=== PATIENT | male | born 1950 | race Caucasian/White ===

== ENCOUNTER 2016-11-09 21:57 | Inpatient (IN) | payer MEDICARE ==
[2016-11-09 22:00] VITALS: BP 102/64; PULSE 111; RESP 18; TEMP 97.6; O2SAT 96
[2016-11-09] MEDS ORDERED: NOVOINJ3 SQ (23:48)
[2016-11-09] MEDS ORDERED: DOXY100C35 (23:48)
[2016-11-09] MEDS ORDERED: HYDR25TA5 PO (23:48)
[2016-11-09] MEDS ORDERED: CAPE1TAB2 PO (23:48)
[2016-11-09] MEDS ORDERED: PROC10TA PO (23:48)
[2016-11-09] MEDS ORDERED: ONDA1TAB17 PO (23:48)
[2016-11-09] MEDS ORDERED: SIMV40TA PO (23:48)
[2016-11-09] MEDS ORDERED: GLIP5TAB8 PO (23:48)
[2016-11-09] MEDS ORDERED: LANTINJ SQ (23:48)
[2016-11-09] MEDS ORDERED: ASPI81CH CHEW (23:48)
[2016-11-09] MEDS ORDERED: VALT500T PO (23:48)
[2016-11-09] MEDS ORDERED: ATEN50TA PO (23:48)
[2016-11-09] MEDS ORDERED: MAGN500T2 PO (23:48)
[2016-11-09] MEDS ORDERED: LISI-515 PO (23:48)
[2016-11-10] VITALS (10 sets, daily range): BP systolic 86–132; BP diastolic 52–66; PULSE 66–114; RESP 14–20; TEMP 96.3–98.6; O2SAT 96–100
--- NOTE | 2016-11-10 00:07 | PD ---
HPI Chief Complaint: Fever Time Seen by Provider: 23:28 Travel History International Travel<30 days: No Contact w/Intl Traveler<30days: No Traveled to known affect area: No History of Present Illness HPI The patient is a 55-year-old male who is currently undergoing treatment for colon cancer. He takes Capecitabine as a chemotherapeutic agent. The dosage was increased 2 weeks prior due to some enlargement of pulmonary nodules. The patient does have stage IV colon cancer with metastatic disease to lungs. He reports a fever today. He's had diarrhea for 2 weeks. He denies abdominal pain. He's had no vomiting however reports nausea. Appetite has been decreased the last 7 days. An occasional cough is noted. PFSH Past Medical History Cancer: Yes (colon) Chemotherapy: Yes Diabetes: Yes Patient Takes Glucophage: Yes (glypizide) Gastrointestinal Disorders: Yes (colon cancer) Hypertension: Yes Implanted Vascular Access Dvce: Yes (port) Tetanus Vaccination: Unknown Past Surgical History Abdominal Surgery: Yes (partial colon ressection/ hernia mesh broken) Cholecystectomy: Yes Other Surgery: Yes (r inguinal hernia/ abd hernia ) Social History Alcohol Use: Yes (2 xs weekly) Tobacco Use: No Substance Use: Yes (occ weed) Allergies-Medications (Allergen,Severity, Reaction): Coded Allergies: Penicillin (Verified Adverse Reaction, Severe, Rash, 11/09/16) Uncoded Allergies: poison marika (Adverse Reaction, Severe, Rash, 11/09/16) Reported Meds & Prescriptions Reported Meds & Active Scripts Active Reported Valtrex (Valacyclovir HCl) 500 Mg Tab 500 Mg PO BID Simvastatin 40 Mg Tab 40 Mg PO HS Prochlorperazine Maleate 10 Mg Tab 10 Mg PO Q6H PRN Ondansetron (Ondansetron HCl) 8 Mg Tab 8 Mg PO TID Magnesium Oxide 500 Mg Tab 800 Mg PO BID PRN Lisinopril 20 Mg Tab 20 Mg PO DAILY Lantus Solostar Pen Inj (Insulin Glargine) 300 Unit/3 Ml Pen 10 Units SQ Novolog Flexpen Inj (Insulin Aspart) 300 Unit/3 Ml Pen 20 Units SQ Hydrochlorothiazide 25 Mg Tab 25 Mg PO DAILY Glipizide 5 Mg Tab 5 Mg PO BIDAC Take 30 minutes before a meal Doxycycline Monohydrate (Doxycycline (Monohydrate)) 100 Mg Cap DAILY Capecitabine 500 Mg Tab 2,000 Mg PO BID Cytotoxic agent. Swallow whole with water 30 minutes after a meal. Do not cut or crush. Atenolol 50 Mg Tab 50 Mg PO DAILY Aspirin 81 Mg Chew 81 Mg CHEW DAILY Review of Systems Except as stated in HPI: all other systems reviewed are Neg Physical Exam Narrative GENERAL: 66-year-old male well-nourished well-developed pleasant SKIN: Warm and dry. HEAD: Atraumatic. Normocephalic. EYES: Pupils equal and round. No scleral icterus. No injection or drainage. ENT: No nasal bleeding or discharge. Mucous membranes pink and moist. NECK: Trachea midline. No JVD. CARDIOVASCULAR: Regular rate and rhythm. RESPIRATORY: No accessory muscle use. Clear to auscultation. Breath sounds equal bilaterally. GASTROINTESTINAL: Abdomen soft, non-tender, nondistended. Hepatic and splenic margins not palpable. MUSCULOSKELETAL: Extremities without clubbing, cyanosis, or edema. No obvious deformities. NEUROLOGICAL: Awake and alert. No obvious cranial nerve deficits. Motor grossly within normal limits. Five out of 5 muscle strength in the arms and legs. Normal speech. PSYCHIATRIC: Appropriate mood and affect; insight and judgment normal. Data Data Last Documented VS Vital Signs Date Time Temp Pulse Resp B/P Pulse Ox O2 Delivery O2 Flow Rate FiO2 11/10/16 02:30 114 20 98/66 97 Room Air 11/09/16 22:00 97.6 Vital signs reviewed Orders Complete Blood Count With Diff (11/09/16 23:29) Comprehensive Metabolic Panel (11/09/16 23:29) Lipase (11/09/16 23:29) Urinalysis - C+S If Indicated (11/09/16 23:29) Iv Access Insert/Monitor (11/09/16 23:29) Ecg Monitoring (11/09/16 23:29) Oximetry (11/09/16 23:29) Blood Culture (11/09/16 23:31) Chest, Single Ap (11/09/16 ) Influenzae A/B Antigen (11/09/16 23:52) Sodium Chlor 0.9% 1000 Ml Inj (Ns 1000 M (11/10/16 02:15) Cefepime Inj (Maxipime Inj) (11/10/16 02:15) Urinary Catheter Insert/Apply (11/10/16 02:30) Admit Order (Ed Use Only) (11/10/16 02:31) Labs Laboratory Tests Test 11/10/16 00:25 White Blood Count 13.3 TH/MM3 Red Blood Count 4.08 MIL/MM3 Hemoglobin 14.0 GM/DL Hematocrit 41.6 % Mean Corpuscular Volume 101.9 FL Mean Corpuscular Hemoglobin 34.2 PG Mean Corpuscular Hemoglobin 33.5 % Concent Red Cell Distribution Width 16.0 % Platelet Count 177 TH/MM3 Mean Platelet Volume 9.9 FL Neutrophils (%) (Auto) 82.6 % Lymphocytes (%) (Auto) 4.5 % Monocytes (%) (Auto) 12.7 % Eosinophils (%) (Auto) 0.1 % Basophils (%) (Auto) 0.1 % Neutrophils # (Auto) 11.0 TH/MM3 Lymphocytes # (Auto) 0.6 TH/MM3 Monocytes # (Auto) 1.7 TH/MM3 Eosinophils # (Auto) 0.0 TH/MM3 Basophils # (Auto) 0.0 TH/MM3 CBC Comment DIFF FINAL Differential Comment Sodium Level 127 MEQ/L Potassium Level 4.3 MEQ/L Chloride Level 97 MEQ/L Carbon Dioxide Level 13.4 MEQ/L Anion Gap 17 MEQ/L Blood Urea Nitrogen 77 MG/DL Creatinine 3.91 MG/DL Estimat Glomerular Filtration 16 ML/MIN Rate Random Glucose 302 MG/DL Calcium Level 8.2 MG/DL Total Bilirubin 0.6 MG/DL Aspartate Amino Transf 18 U/L (AST/SGOT) Alanine Aminotransferase 33 U/L (ALT/SGPT) Alkaline Phosphatase 77 U/L Total Protein 7.4 GM/DL Albumin 3.2 GM/DL Lipase 323 U/L [facility] Medical Decision Making Medical Screen Exam Complete: Yes Emergency Medical Condition: Yes Differential Diagnosis Sepsis, pneumonia, UTI, renal failure, anemia, colitis, gastroenteritis, influenza Narrative Course CBC & BMP Diagram 11/10/16 00:25 LFTs normal Lipase 323 Patient reports no voiding of urine for the past 3 days or so. He describes a severe fullness sensation in the pelvis area. A Ricardo catheter was placed and about 100 cc of urine was collected. Case d/w Dr Figueroa for [facility]: admission, IV abx cefepime, hydration, blood cultures, UA, renal indices today c/w KEMAR as most recent prior values were BUN 28 / Cr is 1.30. Cefepime 1g given. 1L NS given. Case discussed with Ben Du. Diagnosis Primary Impression: Fever Qualified Code: R50.9 - Fever, unspecified fever cause Additional Impressions: Diarrhea Qualified Code: R19.7 - Diarrhea, unspecified type KEMAR (acute kidney injury) Admitting Information Admitting Physician Requests: Moe Baeza MD Nov 10, 2016 00:07
[2016-11-10 00:37] LABS: BASOPHIL % 0.1 % (0.0-2.0); EOSINOPHIL % 0.1 % (0.0-4.0); HEMATOCRIT 41.6 % (39.0-51.0); HEMO FLAGS DIFF FINAL; LYMPH % 4.5 % (9.0-44.0); LYMPHOCYTE # 0.6 TH/MM3 (1.0-4.8); MEAN CELL VOLUME 101.9 FL (80.0-100.0); MEAN CORPUSCULAR HEMOGLOBIN 34.2 PG (27.0-34.0); MEAN CORPUSCULAR HGB CONC 33.5 % (32.0-36.0); MONO % 12.7 % (0.0-8.0); NEUT % 82.6 % (16.0-70.0); PLATELET COUNT 177 TH/MM3 (150-450); RED BLOOD COUNT 4.08 MIL/MM3 (4.50-5.90); WHITE BLOOD COUNT 13.3 TH/MM3 (4.0-11.0)
[2016-11-10 00:58] LABS: ALT (GPT) 33 U/L (12-78); ANION GAP 17 MEQ/L (5-15); AST (GOT) 18 U/L (15-37); BICARBONATE 13.4 MEQ/L (21.0-32.0); BLOOD UREA NITROGEN 77 MG/DL (7-18); CHLORIDE 97 MEQ/L (98-107); GLOMERULAR FILTRATION RATE 16 ML/MIN (>89); POTASSIUM 4.3 MEQ/L (3.5-5.1); SODIUM (NA) 127 MEQ/L (136-145)
[2016-11-10 01:00] LABS: ALKALINE PHOSPHATASE 77 U/L (45-117); TOTAL BILIRUBIN ADULT 0.6 MG/DL (0.2-1.0)
--- NOTE | 2016-11-10 01:05 | RADRPT ---
EXAM DATE/TIME: 11/09/2016 23:48 [facility] COMPARISON: No previous studies available for comparison. INDICATIONS : Fever for one day. MEDICAL HISTORY : Carcinoma, colon. Diabetes mellitus type II. Hypertension. SURGICAL HISTORY : Hernia repair. ENCOUNTER: Initial ACUITY: 1 day PAIN SCORE: 0/10 LOCATION: Bilateral chest FINDINGS: A single view of the chest demonstrates the lungs to be symmetrically aerated without evidence of mas s, infiltrate or effusion. The cardiomediastinal contours are unremarkable. Osseous structures are intact. [id number]-o-[id number] is in place via right internal jugular approach with its tip in the superior ve na cava. CONCLUSION: 1. No acute cardiopulmonary disease. Scott Chung MD on November 10, 2016 at 1:04 Board Certified Radiologist. This report was verified electronically.
[2016-11-10] MEDS ORDERED: CEFEPIME INJ 1,000 MG in SODIUM CHLORIDE 0.9% INJ 100 ML IV ONE (02:15)
[2016-11-10] MEDS ORDERED: SODIUM CHLOR 0.9% 1000 ML INJ 1,000 ML IV ONE ×2 (02:15→14:30)
[2016-11-10] MEDS ORDERED: ONDANSETRON HCL 4 MG/2 ML VIAL IVP PRN (02:45)
[2016-11-10] MEDS ORDERED: ACETAMINOPHEN 325 MG TAB PO PRN (02:45)
[2016-11-10] MEDS ORDERED: SODIUM CHLORIDE 0.9% FLUSH 10 ML FLUSH IV FLUSH PRN (02:45)
[2016-11-10] MEDS ORDERED: NALOXONE HCL 0.4 MG/ML AMP IV PRN (02:45)
[2016-11-10] MEDS: SODIUM CHLOR 0.9% 1000 ML INJ 1,000 ML IV SCH ×2 (03:44→12:25)
[2016-11-10] MEDS: metroNIDAZOLE 500 MG INJ 100 ML IV SCH ×3 (04:20→21:42)
[2016-11-10] MEDS: HEPARIN SODIUM - SQ 10,000 UNITS/ML VIAL SQ SCH ×2 (04:21→16:59)
[2016-11-10 04:38] LABS: BACTERIA, URINE RARE /hpf; BLOOD, URINE MOD (NEG); CALCIUM OXALATE CRYSTALS,URINE RARE /hpf; COMMENT (UR) CULT NOT INDICATED; CULTURE IF INDICATED CULT NOT INDICATED; GLUCOSE,URINE 300 mg/dL (NEG); HYALINE CAST, URINE 80 /lpf (RARE); KETONE, URINE NEG (NEG); MUCUS URINE FEW /lpf (OCC); NITRITE,URINE NEG (NEG); PH, URINE 5.5 (5.0-8.5); RENAL EPITHELIAL CELLS <1 /hpf; SQUAMOUS EPITHELIAL CELL URINE 4 /hpf (0-5); TRANSITIONAL EPI CELLS, URINE 1 /hpf; URINE COLOR YELLOW (YELLW/STRAW); WAXY CAST, URINE 1 /lpf
[2016-11-10 06:12] LABS: C. DIFF EPI 027 PRESUMPTIVE NEGATIVE (NEGATIVE); C. DIFF TOXIN PCR NEGATIVE (NEGATIVE)
[2016-11-10 07:03] LABS: MAGNESIUM 1.4 MG/DL (1.5-2.5)
[2016-11-10] MEDS: SODIUM CHLORIDE 0.9% FLUSH 10 ML FLUSH IV FLUSH SCH ×2 (07:59→21:00)
[2016-11-10] MEDS ORDERED: MORPHINE SULFATE 4 MG/ML INJ IV PUSH PRN (08:45)
[2016-11-10] MEDS ORDERED: ACETAMINOPHEN/HYDROcodone 325 MG/5 MG TAB PO PRN (08:45)
[2016-11-10] MEDS ORDERED: MAGNESIUM OXIDE 800 MG PO PRN (08:45)
[2016-11-10] MEDS ORDERED: PROCHLORPERAZINE MALEATE 10 MG TAB PO PRN (08:45)
[2016-11-10] MEDS ORDERED: LISINOPRIL 20 MG TAB PO SCH (09:00)
[2016-11-10] MEDS ORDERED: HYDROCHLOROTHIAZIDE 25 MG TAB PO SCH (09:00)
--- NOTE | 2016-11-10 09:21 | RADRPT ---
EXAM DATE/TIME: 11/10/2016 08:32 [facility] COMPARISON: No previous studies available for comparison. INDICATIONS : Increased Bun and Creatinine. MEDICAL HISTORY : Myocardial infarction. Hypertension. Chronic obstructive pulmonary disease. Colon cancer. Diabetic. SURGICAL HISTORY : Partial colon resection. Hernia mesh. Left and right shoulder surgery. ENCOUNTER: Initial ACUITY: 1 day PAIN SCORE: 0/10 LOCATION: Bilateral flank MEASUREMENTS: RIGHT KIDNEY: 11.3 x 5.8 x 5.7 cm LEFT KIDNEY: 11.3 x 4.8 x 4.2 cm FINDINGS: RIGHT KIDNEY: Mild increase in cortical echogenicity. No evidence of mass, stone or hydronephrosis. LEFT KIDNEY: Mild increase in cortical echogenicity. No evidence of mass stone or hydronephrosis. BLADDER: Decompressed with Ricardo catheter present. CONCLUSION: No evidence of hydronephrosis. Ben Mclcoud MD on November 10, 2016 at 9:17 Board Certified Radiologist. This report was verified electronically.
--- NOTE | 2016-11-10 09:50 | MH ---
cc: ERROL FARRELL MD DATE OF ADMISSION 11/10/2016 DATE OF 1950 CHIEF COMPLAINT Urinary retention, diarrhea, generalized weakness. TRAVEL IN THE LAST 30 DAYS None HISTORY OF PRESENT ILLNESS This is a 55-year-old white male who was diagnosed with colon cancer in 2014. The patient now has been treated at the [facility] and seen every three weeks. The last visit was on 10/26/2016. The patient now has metastasis to the lungs and is receiving his chemotherapy with adjustment doses at the [facility]. The patient has noted increased episodes of diarrhea for the past two weeks. He is also suffering with generalized weakness, malaise and a low grade fever. The patient has had a decreased appetite associated with nausea, but no vomiting before his admission or before coming to the ER. The patient now he has suffered with urinary retention. He has a new Ricardo catheter in which is now showing some mild hematuria. The patient denies any chest pain. He does have a exertional dyspnea when up and walking to the bathroom. He denies any headache. He has no acute shortness of breath at rest. His is by his side and states that he has oncology that he sees as needed in town and she thinks the name is Dr. Ames. The patient states urinary catheter is very painful and he is also complaining of some abdominal pain and cramping. MEDICAL HISTORY 1. Colon cancer, current chemotherapy 2. Diabetes 3. Hypertension PAST SURGICAL HISTORY 1. Partial colon resection 2. Hernia with mesh which is now broken 3. Cholecystectomy 4. Vascular port for his chemotherapy 5. Inguinal hernia 6. Abdominal hernia ALLERGIES PENICILLIN AND POISON JAVI REPORTED MEDICATIONS 1. Valtrex 2. Simvastatin 3. Zofran 4. Prochlorperazine 5. Mag ox as needed 6. Lisinopril 7. Lantus 8. NovoLog insulin 9. Hydrochlorothiazide 10. Glipizide 11. Doxycycline 12. Atenolol 13. Aspirin 14. Cytotoxic agent SOCIAL HISTORY The patient is currently lives with his . He does have alcohol consumption approximately two times a week. No tobacco use in the past two years. Occasional marijuana use. REVIEW OF SYSTEMS A 12-point review was obtained. Positives noted in HPI predominantly with acute diarrhea, abdominal pain and cramping, urinary retention, mild hematuria, new Ricardo catheter, fever exertional dyspnea and any other positives symptoms mentioned in the HPI. Other systems negative or unremarkable. PHYSICAL EXAM VITAL SIGNS: Temperature is 97.9, pulse now 80, has been tachycardic as high as 114 with some activity to the bathroom, respirations 14-20, blood pressure 132/66 initially low on admission was 98/66, O2 sat 97 currently on room air. GENERAL: This is a well-nourished, well-developed white male who looks to be his stated age resting in the bed. SKIN: Skis is slightly pale, warm and dry. HEENT: Atraumatic, normocephalic. PERRL at 2. No scleral icterus. No nasal or oral discharge. Mucous membranes are pink and moist. NECK: Supple. CARDIOVASCULAR: S1-S2 regular rate and rhythm. No murmurs, rubs or gallops audible. RESPIRATORY: Essentially clear to auscultation. No wheezes, no rhonchi. He does have generalized muffled breath sounds. GI: Abdomen is round, soft, mild tenderness to light palpation. Active bowel sounds in all four quadrants. MUSCULOSKELETAL: Moving his extremities with purpose. No obvious deformities. No peripheral edema. NEUROLOGIC: He is awake, alert, mildly anxious over current condition in his pain level. His speech is clear. Equal hand pet trainer and the patient is ambulating without assistance. PSYCHOLOGICAL: Mood and affect is appropriate with some mild anxiety. DIAGNOSTIC DATA WBC count 13.3, RBC 4.08, hemoglobin 14, hematocrit 41.60, MCV 101.90, MCH 34.2, platelet count 177, neutrophil percentage 82.6, lymphocyte 4.5, monocyte 12.7. Chemistry sodium 127, potassium 4.3, chloride 97, carbon oxide 13.4, amnion gap 17, BUN 77, creatinine 3.91, GFR 16, random glucose 302, calcium 8.2, phosphorus 5.1, magnesium 1.4, other abnormal are albumin is 3.2, lipase is 323, AST, ALT and alkaline phos are in normal range. Urine shows yellow hazy, pH of 5.5, specific gravity 1.018, protein elevated at 100 glucose at 300, negative ketones, nitrites, bilirubin or leukocyte esterase. Moderate amount of occult blood, rare calcium oxylate crystal, rare bacteria, culture is not indicated. C. Diff is negative. Toxoid negative. is negative. The patient blood cultures pending. Negative for flu A and B. Occult stool which was negative. The TRICIA is pending. IMAGING STUDIES Chest x-ray to have no acute cardiopulmonary disease. ASSESSMENT/PLAN 1. Acute renal failure 2. Possible gastroenteritis/colitis 3. Urinary retention with some mild hematuria 4. Leukocytosis unspecified 5. Hyponatremia 6. Fever of unknown origin 7. History of colon cancer with mets to the lungs currently receiving chemotherapy. Our plan is to admit inpatient status. Maintain the patient on IV fluids for hydration. ECG monitoring, Ricardo catheter with accurate I&O. Ultrasound of kidneys, renal bladder have been ordered and are pending. The patient will receive IV pain management. Vital signs q4 as warranted. Activity out of bed with monitoring. We started Flomax for his urinary retention and consulted urology for their expert opinion. I have also consultation nephrology for his acute renal failure and we would appreciate expert opinion for any further needs. The patient has heparin subcu for DVT prophylaxis which will need to be monitored based on the patient's new hematuria. Protonix p.o. for PPI prophylaxis. IV Maxipime. IV Metronidazole, Tylenol for temp greater than 100.4. We will follow the needs of this patient. Currently, he is full code, full aggressive care according to the record. Dr. Figueroa was notified at the [facility] of patient's findings and his admission here to the hospital. Dictated by HANNY Horta MD ROSA MARIA Muse/VIC /8:50 AM /9:12 AM seen, examined by myself, Dr Farrell, today at the emergency department room f 63 Discussed with patient and This is a 55-year-old male with a history of metastatic colon cancer to the lungs. He did have some form of surgery for his colon cancer. He is on chemotherapy supervised by the oncologists at [facility]. His baseline creatinine is 1.3. He came into the emergency department last night with general weakness. His creatinine was 3.91. His is extremely dehydrated. He has been having diarrhea for some time maybe weeks. Also he was found in urinary retention. Ricardo catheter was put in. He received bolus IV fluids and 100 cc an hour of normal saline. His renal ultrasound was negative. Hemoccult stool positive. Is questioning whether his symptoms are secondary to the chemotherapy itself. Nephrology and oncology are consulted. He does have COPD and is therefore on DuoNeb when necessary. He was wheezing during the exam. He looked very dehydrated so another bolus of 1 L normal saline was ordered. He is diabetic and currently on sliding scale insulin with Accu-Cheks Lisinopril and hydrochlorothiazide on hold at this time Further recommendations will depend on his hospital course Discussed with mid level provider The exam, history, and the medical decision-making described in the above note were completed with the assistance of the mid-level provider. I reviewed the findings presented. I attest that I had a asoc-et-apiv encounter with the patient on the same day, and personally performed and documented my assessment and findings in the medical record. NINO
[2016-11-10] MEDS: ATENOLOL 50 MG TAB PO SCH (10:17)
[2016-11-10] MEDS: TAMSULOSIN HCL 0.4 MG CAP PO SCH ×2 (10:17→21:41)
[2016-11-10] MEDS: PANTOPRAZOLE SOD 20 MG DELAYED RELEASE TAB PO SCH (10:18)
[2016-11-10] MEDS: valACYclovir HCL 500 MG TAB PO SCH ×2 (10:18→21:41)
[2016-11-10] MEDS: ONDANSETRON ODT 4 MG TAB PO SCH ×3 (10:19→17:51)
[2016-11-10] MEDS ORDERED: MAGNESIUM OXIDE 400 MG TAB PO ONE ×2 (13:00→14:45)
--- NOTE | 2016-11-10 13:40 | MB ---
cc: DAVID FLOYD DATE OF CONSULTATION: 11/10/2016 HISTORY OF PRESENT ILLNESS Mr. Wells is a pleasant 66-year-old male who was diagnosed with colon cancer back in 2014 and underwent colectomy at the [facility] at that time and has been on chemotherapeutic agents due to some evidence of recurrence in the right lower lobe of his lung. On admission here he was stating he was having some trouble with urination and a Ricardo catheter was placed without difficulty by report. The patient says some urine was drained but it was not a tremendous amount. He does admit to a history of nocturia x3 and a weak stream at times. He denies any evidence of incomplete emptying or urinary tract infections. He denies any evidence of any gross hematuria. He denies any family history of prostate cancer. The patient has noted diarrhea over the last week and increasing abdominal pain. He notes nausea but denies any vomiting. PAST MEDICAL HISTORY 1. Colon cancer. 2. Diabetes. 3. Hypertension. PAST SURGICAL HISTORY 1. Colon resection back in 2014. 2. Hernia repair with mesh x3 in the past. 3. Cholecystectomy. 4. Port placement for chemotherapy. ALLERGIES 1. PENICILLIN. 2. POISON JAVI. MEDICATIONS Please refer to the chart. SOCIAL HISTORY He notes occasional marijuana usage. He has a long history of smoking and quit 2 years ago. He denies excessive drinking but does drink socially. REVIEW OF SYSTEMS He denies any chest pain, shortness of breath at present. States that his abdominal pain is getting better since admission. Presently he denies any fever or chills. He notes a history of nocturia 2-3 times but denies any gross hematuria or urinary tract infections. The remaining review of systems are negative per the HPI. FAMILY HISTORY No family history of prostate cancer is noted. PHYSICAL EXAMINATION VITAL SIGNS: Temperature 98.6, heart rate 70, respiratory rate 16, blood pressure 114/59. GENERAL: He is a well-developed, well-nourished 66-year-old male in no acute distress. HEENT: Normocephalic, atraumatic. Pupils equal, round and react to light. Extraocular movements intact. NECK: Supple. HEART: Regular rate and rhythm. LUNGS: Clear. ABDOMEN: Soft. Some tenderness but there is no rebound or guarding. There is no CVA tenderness. : Normal phallus. Testes descended. Ricardo catheter in place. EXTREMITIES: No evidence of cyanosis, clubbing or edema. NEUROLOGIC: Alert and oriented x3. PSYCHIATRIC: Generalized mood. No evidence of depression. LABORATORY White count 13.5, hemoglobin 14, hematocrit 41.6, platelet count 177. Sodium 127, potassium 4.3, chloride 97, CO2 13.4, BUN 77, creatinine 3.91, glucose 302. Urinalysis shows 38 red cells, 8 white cells, nitrite negative, positive leukocyte esterase. IMAGING Renal bladder ultrasound shows no evidence of any hydronephrosis and the bladder was decompressed with the Ricardo. ASSESSMENT A 66-year-old male with a history of colon cancer on chemotherapeutic agents with a history of diarrhea x14 days with evidence of acute renal failure and a creatinine of 3.91 without evidence of hydronephrosis. RECOMMENDATIONS Continue Flomax as this will help with his nocturia 2-3 times. The acute renal failure is possibly secondary to dehydration. Continue IV fluids and antibiotics. Recommend void trial prior to discharge. The patient can follow-up as an outpatient with urology to assess voiding at that time. Thank you for the consult and allowing me to participate in the care of this patient. David ROME /1:17 PM /1:28 PM
[2016-11-10] MEDS ORDERED: DEXTROSE 50% IN WATER 50 ML VIAL(D50) IV PRN (14:30)
[2016-11-10] MEDS ORDERED: GLUCAGON 1 MG/ML VIAL OTHER PRN (14:30)
[2016-11-10] MEDS ORDERED: RESP: ALBUTEROL 2.5 MG/IPRATROPIUM 0.5 MG NEB (PRN) NEB (14:45)
--- NOTE | 2016-11-10 16:03 | PD.CONS ---
[facility] Service Nephrology Consult Requested By Florian Reason for Consult KEMAR Primary Care Physician Carl Antoine DO History of Present Illness This is a 66 y/o male patient with a hx of metastatic colon cancer. His last chemotherapy was 3 weeks ago. For the past two weeks he has had very watery diarrhea, nausea, and weakness. He came to ER for evaluation. PMH of DM II, HTN , there are no baseline labs for analysis. On arrival he was in renal failure with creatinine of 3.91, BUN 77, C02 13, Na127, Phos 5.1, mag 1.4. We were consulted for renal management. A gonzalez was placed and he did not have much urine return. Renal US is negative. He is not in distress, is awake/alert, not reporting nausea. He is a full code. (Julienne Willson) Review of Systems Constitutional: COMPLAINS OF: Fatigue, Fever, Change in appetite, DENIES: Weight gain Cardiovascular: DENIES: Chest pain Gastrointestinal: COMPLAINS OF: Abdominal pain, Diarrhea, Nausea, Anorexia, DENIES: Vomiting, Difficulty Swallowing (Julienne Willson) Past Family Social History Allergies: Coded Allergies: Penicillin (Verified Adverse Reaction, Severe, Rash, 11/09/16) Uncoded Allergies: poison marika (Adverse Reaction, Severe, Rash, 11/09/16) Past Medical History colon cancer, on chemotherapy DM II HTN Past Surgical History partial colon resection port placement hernia x 2 Reported Medications Valtrex (Valacyclovir HCl) 500 Mg Tab 500 Mg PO BID Simvastatin 40 Mg Tab 40 Mg PO HS Prochlorperazine Maleate 10 Mg Tab 10 Mg PO Q6H PRN Ondansetron (Ondansetron HCl) 8 Mg Tab 8 Mg PO TID Magnesium Oxide 500 Mg Tab 800 Mg PO BID PRN Lisinopril 20 Mg Tab 20 Mg PO DAILY Lantus Solostar Pen Inj (Insulin Glargine) 300 Unit/3 Ml Pen 10 Units SQ Novolog Flexpen Inj (Insulin Aspart) 300 Unit/3 Ml Pen 20 Units SQ Hydrochlorothiazide 25 Mg Tab 25 Mg PO DAILY Glipizide 5 Mg Tab 5 Mg PO BIDAC Take 30 minutes before a meal Doxycycline Monohydrate (Doxycycline (Monohydrate)) 100 Mg Cap DAILY Capecitabine 500 Mg Tab 2,000 Mg PO BID Cytotoxic agent. Swallow whole with water 30 minutes after a meal. Do not cut or crush. Atenolol 50 Mg Tab 50 Mg PO DAILY Aspirin 81 Mg Chew 81 Mg CHEW DAILY Active Ordered Medications Current Medications Medications (Trade) Dose Ordered Sig/Paula Route Start Time Stop Time Status Last Admin (NS 1000 ml Inj) 1,000 ml @ 100 mls/hr Q10H IV 11/10/16 02:38 11/10/16 03:44 (NS Flush) 2 ml UNSCH PRN IV FLUSH 11/10/16 02:45 (NS Flush) 2 ml BID IV FLUSH 11/10/16 09:00 (Tylenol) 650 mg Q4H PRN PO 11/10/16 02:45 (Zofran Inj) 4 mg Q6H PRN IVP 11/10/16 02:45 (Heparin Inj) 5,000 units Q12H SQ 11/10/16 04:00 11/10/16 04:21 Naloxone HCl 0.4 mg 0.4 mg UNSCH PRN IV 11/10/16 02:45 Cefepime HCl 500 mg/Sodium Chloride 100 ml @ 200 mls/hr Q24H IV 11/11/16 02:00 (Flagyl 500 Mg Inj) 100 ml @ 100 mls/hr Q8H IV 11/10/16 04:00 11/10/16 11:11 (Flomax) 0.4 mg Q12HR PO 11/10/16 09:00 11/10/16 10:17 (Morphine Inj) 2 mg Q3H PRN IV PUSH 11/10/16 08:45 11/10/16 10:22 ([place]emaha 5-325 Mg) 1 tab Q4H PRN PO 11/10/16 08:45 (Protonix) 20 mg DAILY PO 11/10/16 09:00 11/10/16 10:18 (Tenormin) 50 mg DAILY PO 11/10/16 09:00 11/10/16 10:17 (Compazine) 10 mg Q6H PRN PO 11/10/16 08:45 (Valtrex) 500 mg BID PO 11/10/16 09:00 11/10/16 10:18 (Zofran Odt) 8 mg TID PO 11/10/16 10:00 11/10/16 10:19 (D50w (Vial) Inj) 50 ml UNSCH PRN IV 11/10/16 14:30 Glucagon 1 mg 1 mg UNSCH PRN OTHER 11/10/16 14:30 (Magnesium Sulfate 1 Gm Premix) 100 ml @ 100 mls/hr Q1H IV 11/10/16 14:30 11/10/16 16:29 (Prinivil) 10 mg DAILY PO 11/11/16 09:00 Family History no hx of renal disorders Social History former smoker , quit 2 years ago no ETOH . 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 (Julienne Willson) Physical Exam Vital Signs Vital Signs Date Time Temp Pulse Resp B/P Pulse Ox O2 Delivery O2 Flow Rate FiO2 11/10/16 11:14 98.6 78 16 114/59 98 11/10/16 07:27 97.9 80 14 132/66 97 11/10/16 07:06 97.8 74 18 106/59 98 11/10/16 06:24 98 21 11/10/16 03:44 106 16 112/58 98 Room Air 11/10/16 02:30 114 20 98/66 97 Room Air 11/10/16 01:15 108 16 100/62 96 Room Air 11/09/16 23:29 Room Air 11/09/16 22:00 97.6 111 18 102/64 96 Room Air Physical Exam Obese middle aged male awake/alert, no neuro deficit S1/S2, RRR no murmurs abd: soft, non tender, round, no rebound lungs clear ext: no edema gonzalez: blood tinged urine, oliguric Laboratory Laboratory Tests Test 11/10/16 11/10/16 11/10/16 11/10/16 00:25 03:12 04:19 05:59 White Blood Count 13.3 Red Blood Count 4.08 Hemoglobin 14.0 Hematocrit 41.6 Mean Corpuscular Volume 101.9 Mean Corpuscular Hemoglobin 34.2 Mean Corpuscular Hemoglobin 33.5 Concent Red Cell Distribution Width 16.0 Platelet Count 177 Mean Platelet Volume 9.9 Neutrophils (%) (Auto) 82.6 Lymphocytes (%) (Auto) 4.5 Monocytes (%) (Auto) 12.7 Eosinophils (%) (Auto) 0.1 Basophils (%) (Auto) 0.1 Neutrophils # (Auto) 11.0 Lymphocytes # (Auto) 0.6 Monocytes # (Auto) 1.7 Eosinophils # (Auto) 0.0 Basophils # (Auto) 0.0 CBC Comment DIFF FINAL Differential Comment Sodium Level 127 Potassium Level 4.3 Chloride Level 97 Carbon Dioxide Level 13.4 Anion Gap 17 Blood Urea Nitrogen 77 Creatinine 3.91 Estimat Glomerular Filtration 16 Rate Random Glucose 302 Calcium Level 8.2 Total Bilirubin 0.6 Aspartate Amino Transf 18 (AST/SGOT) Alanine Aminotransferase 33 (ALT/SGPT) Alkaline Phosphatase 77 Total Protein 7.4 Albumin 3.2 Lipase 323 Stool C. difficile Toxin (PCR) NEGATIVE Stl C. difficile Toxin PRESUMPTIVE Epiderm 027 NEGATIVE Urine Color YELLOW Urine Turbidity HAZY Urine pH 5.5 Urine Specific [place] 1.018 Urine Protein 100 Urine Glucose (UA) 300 Urine Ketones NEG Urine Occult Blood MOD Urine Nitrite NEG Urine Bilirubin NEG Urine Urobilinogen LESS THAN 2.0 Urine Leukocyte Esterase NEG Urine RBC 38 Urine WBC 8 Urine Squamous Epithelial 4 Cells Urine Transitional Epithelial 1 Cells Urine Renal Epithelial Cells <1 Urine Calcium Oxalate Crystals RARE Urine Amorphous Sediment RARE Urine Bacteria RARE Urine Hyaline Casts 80 Urine Waxy Casts 1 Urine Mucus FEW Microscopic Urinalysis Comment CULT NOT INDICATED Phosphorus Level 5.1 Magnesium Level 1.4 Date/Time Procedure Status Source Growth 11/10/16 03:12 Stool Occult Blood (TRICIA) - Final Complete Stool Stool HEMOCCULT POSITIVE 11/10/16 00:40 Influenza Types A,B Antigen (TRICIA) - Final Complete Nasal Aspirate NEGATIVE FOR FLU A AND B ANTIGEN.... 11/10/16 00:25 Aerobic Blood Culture Received Blood Peripheral Pending 11/10/16 00:25 Anaerobic Blood Culture Received Blood Peripheral Pending (Julienne Willson) Result Diagram: 11/10/16 0025 11/10/16 0025 Imaging Last 72 hours Impressions Renal Ultrasound 11/10/16 0000 Signed Impressions: Service Date/Time: Thursday, November 10, 2016 08:32 - CONCLUSION: No evidence of hydronephrosis. Ben Mccloud MD Chest X-Ray 11/09/16 0000 Signed Impressions: Service Date/Time: October 23:48 - CONCLUSION: 1. No acute cardiopulmonary disease. Scott Chung MD (Julienne Willson) Assessment and Plan Problem List: (1) KEMAR (acute kidney injury) Plan: In a patient with no baseline labs for analysis oliguric renal failure, KEMAR: suspected prerenal azotemia due to dehydration secondary to diarrhea he has metabolic acidosis start IVF, 1/2 NS with 75 mEq sodium bicarbonate obtain urine electrolytes hold diuretics, hold MARKY repeat renal panel in AM phosphorous elevated, should improve as renal function improves gonzalez is not required, remove if cleared by urology he was reporting nocturia, started on flomax (2) Fever Plan: susptected UTI on cefepime (3) Hyponatremia Plan: pseudohyponatremia, corrected sodium is 131 hypovolemic hyponatremia, start IVF follow BMP (4) Hypomagnesemia Plan: replaced, follow up lab work (Julienne Willson) Assessment and Plan patient was seen and examined. Baseline renal function is not known, patient reports that his renal function had been normal in the past. He thinks that hypomagnesemia is due to chemotherapy. It is possible that he has received cisplatin. Continue bicarbonate containing IVF. Hyponatremia is partly due to pseudohyponatremia, corrected serum Na is 131 after correction for hyperglycemia. Also may have hypovolemic hyponatremia and non osmotic release of ADH. (Abbe Parker MD) Problem Qualifiers (1) Fever: Qualified Code: R50.9 - Fever, unspecified fever cause Julienne Willson Nov 10, 2016 16:03 Abbe Parker MD Nov 10, 2016 21:16
[2016-11-10] MEDS: INSULIN ASPART SUPPLEMENTAL SCALE SQ SCH ×2 (16:58→21:54)
[2016-11-10] MEDS: MAGNESIUM SULFATE 1 GM PREMIX 100 ML IV SCH (17:01)
[2016-11-10] MEDS: SODIUM BICARBONATE 8.4% INJ 75 MEQ in SODIUM CHLOR 0.45% 1000 ML INJ 1,000 ML IV SCH (22:07)
--- NOTE | 2016-11-10 22:56 | MB ---
cc: KIAN ARNOLD M.D. DATE OF CONSULTATION 11/10/16 REASON FOR CONSULTATION Consult requested by Dr. Leslie for evaluation of severe diarrhea in a patient who is on chemotherapy for colon cancer. HISTORY OF PRESENT ILLNESS Christiano is a pleasant 66-year-old male. He was diagnosed with colon cancer in 2014 when he was in [facility]. He stated that he underwent surgery. Right after the surgery he was found to have lung metastasis. He was told that he has only 6 months to live. He was treated initially with FOLFOX chemotherapy. His tumor was KRAS wild type. He was subsequently treated with Vectibix and maybe FOLFIRI chemotherapy, he is not sure. The patient then moved to [place] and he has been going to [facility] for his treatment for colon cancer. He is seeing Dr. Diggs. Those records are not available. According to the patient he has been on capecitabine and Vectibix for the last several months. He was on 2000 milligrams twice a day of capecitabine for 2 weeks on and 1 week off. The repeat scan showed that he had a good response. The capecitabine was tapered down to 2 tablets twice a day. However, recently the restaging scan shows that the lung nodules were getting larger and he was advised to increase the capecitabine to 3 tablets twice a day. He finished a 2 weeks course just a week ago. He is due for another cycle of capecitabine, next week Sunday and Vectibix on Sunday. The patient has been having significant diarrhea for the last 2 weeks. He has been moving bowels 8-10 times a day. He also noticed no urine for the last 2 to 3 days. He developed fever. He had called his oncologist at [place] who advised him that he needs to go to the emergency room. When the patient came to the emergency room he had a blood test done. The CBC showed white count of 13.3, hemoglobin 14, hematocrit 41.6, platelet count is 177. The compressive metabolic profile is significant for sodium of 127, chloride is 97, bicarb is 13.4, BUN is 77, creatinine is 3.91, GFR 16, glucose is 302, calcium is 8.2. The patient is in acute renal failure and he is admitted to the hospital. Nephrology has been consulted for the acute renal failure. Also, he had a Ricardo catheter placed in the emergency room and very minimal urine was obtained. Urologist has been consulted. The patient had ultrasound of the kidneys which did not show any hydronephrosis. I have been asked to see the patient for followup of his colon cancer. The patient has severe diarrhea which is most likely due to the capecitabine chemotherapy. The dose was recently increased. He also has been complaining of nausea but no vomiting. His appetite is poor. He is losing weight. He is complaining of abdominal pain which is cramping like. The rest of the review of systems is negative. PAST MEDICAL HISTORY Hypertension, diabetes mellitus, colon cancer diagnosed in 2015 with lung metastasis. PAST SURGICAL HISTORY Colon cancer, resection. Hernia repair, cholecystectomy, [id number] placement, inguinal hernia repair, abdominal hernia repair. ALLERGIES PENICILLIN AND POISON JAVI. MEDICATIONS Prior to going to the hospital was: 1. Vectibix. 2. Capecitabine. 3. Simvastatin. 4. Zofran. 5. Prochlorperazine. 6. Magnesium oxide. 7. Lisinopril. 8. Insulin. 9. Hydrochlorothiazide. 10. Glipizide. 11. Doxycycline. 12. Atenolol. 13. Aspirin. FAMILY HISTORY Noncontributory. SOCIAL HISTORY The patient is . Lives with his . He does not smoke cigarettes. He drinks alcohol two to three times a week. PHYSICAL EXAMINATION GENERAL: This is a well-developed, well-nourished white male in no apparent distress. VITAL SIGNS: Temperature 97.5, heart rate is 66, blood pressure 99/55, O2 saturation 100% on room air. HEENT: PERRLA, EOMI, anicteric. No oral lesions noted. NECK: Neck is supple. LYMPH NODE SURVEY: There is no cervical, supraclavicular or axillary lymphadenopathy noted. LUNGS: Lungs are clear. No wheezing, rhonchi or rales. HEART: Heart is regular rate and rhythm. ABDOMEN: Soft, diffusely tender. EXTREMITIES: No pedal edema. NEUROLOGY: Awake, alert, oriented times three. SKIN: No significant lesions noted. ASSESSMENT 1. Colon cancer with lung metastasis. The patient has been on Vectibix and Capecitabine chemotherapy. 2. Severe diarrhea due to Capecitabine chemotherapy. 3. Acute renal failure due to severe diarrhea. 4. Oliguric renal failure with urinary retention, currently has Ricardo catheter placed in. PLAN I have reviewed his available records and I had an extensive discussion with the patient and his regarding his present condition. The patient has severe diarrhea for the last 2 weeks which I believe is due to increased dose of Capecitabine. The patient previously was on Capecitabine 2 tablets twice a day and was increased to 3 tablets twice a day. He also has poor oral intake due to the nausea. This all has put him into acute renal failure. The patient is getting hydration. Nephrology and urology both have evaluated the patient. Stools have been collected for study. The blood cultures have been done, the results of that are still pending. The patient has been on the antibiotics. The renal ultrasound does not show any hydronephrosis. The chest x-ray is negative. The patient is due to began another cycle of Capecitabine next week, Sunday. I have advised him that we will hold off on that until he recovers from the renal failure and severe diarrhea. RECOMMENDATIONS I recommend to monitor his electrolytes and continue hydration for the acute renal failure and severe diarrhea. If diarrhea does not improve then we will add Imodium or Lomotil. The patient and his both have asked several questions and these were answered to their satisfaction. Thank you for asking my opinion. David Arnold MD /EO /10:04 PM /10:30 PM MTDD
[2016-11-11] VITALS (11 sets, daily range): BP systolic 88–99; BP diastolic 45–67; PULSE 76–144; RESP 18–21; TEMP 96.3–97.4; O2SAT 98–100
[2016-11-11] MEDS ORDERED: CEFEPIME IV SCH (02:00)
[2016-11-11] MEDS ORDERED: SODIUM CHLORIDE 0.9% IV SCH (02:00)
[2016-11-11] MEDS: SODIUM CHLORIDE 0.9% IV SCH (02:56)
[2016-11-11] MEDS: CEFEPIME IV SCH (02:56)
[2016-11-11] MEDS: HEPARIN SODIUM - SQ 10,000 UNITS/ML VIAL SQ SCH ×2 (04:23→16:56)
[2016-11-11] MEDS: metroNIDAZOLE 500 MG INJ 100 ML IV SCH ×3 (04:24→20:06)
[2016-11-11 05:17] LABS: AUTOMATED NEUTROPHIL # 4.1 TH/MM3 (1.8-7.7); BASOPHIL % 0.3 % (0.0-2.0); EOSINOPHIL # 0.1 TH/MM3 (0-0.4); EOSINOPHIL % 1.6 % (0.0-4.0); HEMATOCRIT 30.9 % (39.0-51.0); HEMO FLAGS DIFF FINAL; LYMPH % 20.5 % (9.0-44.0); LYMPHOCYTE # 1.5 TH/MM3 (1.0-4.8); MEAN CORPUSCULAR HEMOGLOBIN 35.1 PG (27.0-34.0); MEAN CORPUSCULAR HGB CONC 35.1 % (32.0-36.0); MONO % 21.1 % (0.0-8.0); NEUT % 56.5 % (16.0-70.0); PLATELET COUNT 120 TH/MM3 (150-450); RED BLOOD COUNT 3.09 MIL/MM3 (4.50-5.90); RED CELL DISTRIBUTION WIDTH 15.7 % (11.6-17.2); WHITE BLOOD COUNT 7.3 TH/MM3 (4.0-11.0)
[2016-11-11 06:11] LABS: BICARBONATE 15.1 MEQ/L (21.0-32.0); MAGNESIUM 1.9 MG/DL (1.5-2.5); POTASSIUM 3.7 MEQ/L (3.5-5.1)
[2016-11-11] MEDS: SODIUM CHLORIDE 0.9% FLUSH 10 ML FLUSH IV FLUSH SCH ×2 (08:00→20:07)
[2016-11-11] MEDS ORDERED: LISINOPRIL 10 MG TAB PO SCH (09:00)
[2016-11-11] MEDS: PANTOPRAZOLE SOD 20 MG DELAYED RELEASE TAB PO SCH (09:22)
[2016-11-11] MEDS: TAMSULOSIN HCL 0.4 MG CAP PO SCH ×2 (09:23→09:24)
[2016-11-11] MEDS: ONDANSETRON ODT 4 MG TAB PO SCH ×3 (09:23→17:04)
[2016-11-11] MEDS: ATENOLOL 50 MG TAB PO SCH (09:23)
[2016-11-11] MEDS: valACYclovir HCL 500 MG TAB PO SCH ×2 (09:23→20:06)
--- NOTE | 2016-11-11 10:59 | HHI.NPPN ---
Subjective Renal Failure: Acute History of Present Illness 66 y/o male patient with a hx of metastatic colon cancer. His last chemotherapy was 3 weeks ago. For the past two weeks he has had very watery diarrhea, nausea , and weakness. He came to ER for evaluation. PMH of DM II, HTN, no baseline Creatinine available. Additional Remarks Patient is alert, no nausea, still has loose BM, not eating well. Review of Systems General Constitutional: Fatigue Cardiovascular Cardiac: GUARADDO Gastrointestinal Gastrointestinal: Abdominal Pain, Nausea & Vomiting, Diarrhea Objective Data Data 11/10/16 11/11/16 19:00 07:00 Output Total 450 ml Balance -450 ml Output Urine Total 450 ml Vital Signs Date Time Temp Pulse Resp B/P Pulse Ox O2 Delivery O2 Flow Rate FiO2 11/11/16 08:30 96.4 116 21 90/50 98 11/11/16 04:00 97.1 78 18 97/57 100 11/11/16 01:40 98 21 11/11/16 00:00 97.4 76 18 95/52 98 11/10/16 20:00 96.3 70 18 86/52 99 11/10/16 19:32 16 11/10/16 17:59 97.0 72 18 101/60 99 11/10/16 16:57 97.5 66 16 99/55 100 11/10/16 11:14 98.6 78 16 114/59 98 -: 11/11/16 0400 11/11/16 0400 Physical Exam General Appearance: No Acute Distress, Comfortable Eyes Eye Exam: Pupils Equal Throat Throat Exam: Oral Mucosa [place] & Moist Neck Neck Exam: Neck Supple Pulmonary Resp Exam: No Distress, Rhonchi, Decreased Bases, Diminished Breath Sounds Cardiology CV Exam: Regular, Normal Sinus Rhythm Gastrointestinal/Abdomen GI Exam: Soft, Non-Tender, Bowel Sounds Present Extremeties Extremities Exam: No Edema Neurologic Neuro Exam: Alert, Awake, Oriented Psychiatric Psych Exam: Appropriate Responses Assessment/Plan Assessment Summary: KEMAR/Acute Renal Failure Electrolyte Assessment: Metabolic Acidosis Problem List: (1) KEMAR (acute kidney injury) Plan: In a patient with no baseline labs for analysis oliguric renal failure, KEMAR: suspected prerenal azotemia due to dehydration secondary to diarrhea he has metabolic acidosis On IVF, 1/2 NS with 75 mEq sodium bicarbonate obtain urine electrolytes hold diuretics, hold MARKY Creatinine continue to increase. Urine Na. is normal, most likely has ATN causing KEMAR. (2) Fever Plan: susptected UTI on cefepime (3) Hyponatremia Plan: pseudohyponatremia, corrected sodium is 131 hypovolemic hyponatremia, start IVF follow BMP (4) Hypomagnesemia Plan: replaced, follow up lab work Problem Qualifiers (1) Fever: Qualified Code: R50.9 - Fever, unspecified fever cause Lou Sam MD Nov 11, 2016 10:59
[2016-11-11] MEDS: INSULIN ASPART SUPPLEMENTAL SCALE SQ SCH ×4 (11:28→22:03)
--- NOTE | 2016-11-11 11:29 | PD.ONC.PN ---
Subjective Subjective Remarks Afebrile overnight. Patient resting in bed. ~25 episodes of diarrhea in the last 24 hours. He states he feels the diarrhea is slowing down a bit this morning. Mild nausea. Has some gas pains, otherwise no abdominal pain. +improved urine output. Objective Data Date Time Temp Pulse Resp B/P Pulse Ox O2 Delivery O2 Flow Rate FiO2 11/11/16 11:13 98 21 11/11/16 08:30 96.4 116 21 90/50 98 11/11/16 04:00 97.1 78 18 97/57 100 11/11/16 01:40 98 21 11/11/16 00:00 97.4 76 18 95/52 98 11/10/16 20:00 96.3 70 18 86/52 99 11/10/16 19:32 16 11/10/16 17:59 97.0 72 18 101/60 99 11/10/16 16:57 97.5 66 16 99/55 100 11/11/16 11/11/16 11/11/16 07:00 15:00 23:00 Intake Total 1347 ml Output Total 450 ml Balance -450 ml 1347 ml Result Diagram: 11/11/16 0400 11/11/16 0400 Laboratory Results Laboratory Tests Test 11/11/16 04:00 White Blood Count 7.3 TH/MM3 Red Blood Count 3.09 MIL/MM3 Hemoglobin 10.9 GM/DL Hematocrit 30.9 % Mean Corpuscular Volume 100.0 FL Mean Corpuscular Hemoglobin 35.1 PG Mean Corpuscular Hemoglobin 35.1 % Concent Red Cell Distribution Width 15.7 % Platelet Count 120 TH/MM3 Mean Platelet Volume 10.8 FL Neutrophils (%) (Auto) 56.5 % Lymphocytes (%) (Auto) 20.5 % Monocytes (%) (Auto) 21.1 % Eosinophils (%) (Auto) 1.6 % Basophils (%) (Auto) 0.3 % Neutrophils # (Auto) 4.1 TH/MM3 Lymphocytes # (Auto) 1.5 TH/MM3 Monocytes # (Auto) 1.5 TH/MM3 Eosinophils # (Auto) 0.1 TH/MM3 Basophils # (Auto) 0.0 TH/MM3 CBC Comment DIFF FINAL Differential Comment Sodium Level 131 MEQ/L Potassium Level 3.7 MEQ/L Chloride Level 102 MEQ/L Carbon Dioxide Level 15.1 MEQ/L Anion Gap 14 MEQ/L Blood Urea Nitrogen 99 MG/DL Creatinine 4.28 MG/DL Estimat Glomerular Filtration 14 ML/MIN Rate Random Glucose 233 MG/DL Calcium Level 7.5 MG/DL Phosphorus Level 5.3 MG/DL Magnesium Level 1.9 MG/DL Culture Results Microbiology Date/Time Procedure Status Source Growth 11/10/16 00:10 Aerobic Blood Culture - Preliminary Resulted Blood Peripheral NO GROWTH IN 1 DAY 11/10/16 00:10 Anaerobic Blood Culture - Preliminary Resulted Blood Peripheral NO GROWTH IN 1 DAY 11/10/16 00:25 Aerobic Blood Culture - Preliminary Resulted Blood Peripheral NO GROWTH IN 1 DAY 11/10/16 00:25 Anaerobic Blood Culture - Preliminary Resulted Blood Peripheral NO GROWTH IN 1 DAY 11/10/16 00:40 Influenza Types A,B Antigen (TRICIA) - Final Complete Nasal Aspirate NEGATIVE FOR FLU A AND B ANTIGEN.... 11/10/16 03:12 Stool Occult Blood (TRICIA) - Final Complete Stool Stool HEMOCCULT POSITIVE Administered Medications Medications (Trade) Dose Ordered Sig/Paula Route PRN Reason Start Time Stop Time Status Last Admin Dose Admin Heparin Sodium (Porcine) 5000 units 5,000 units Q12H SQ 11/10/16 04:00 11/11/16 04:23 Metronidazole (Flagyl 500 Mg Inj) 100 ml @ 100 mls/hr Q8H IV 11/10/16 04:00 11/11/16 04:24 Tamsulosin HCl (Flomax) 0.4 mg Q12HR PO 11/10/16 09:00 11/10/16 21:41 Morphine Sulfate (Morphine Inj) 2 mg Q3H PRN IV PUSH PAIN 7-10 11/10/16 08:45 11/10/16 10:22 Acetaminophen/ Hydrocodone Bitart (Avery 5-325 Mg) 1 tab Q4H PRN PO PAIN 3-6 11/10/16 08:45 11/10/16 18:32 Pantoprazole Sodium (Protonix) 20 mg DAILY PO 11/10/16 09:00 11/11/16 09:22 Atenolol (Tenormin) 50 mg DAILY PO 11/10/16 09:00 11/11/16 09:23 Valacyclovir HCl (Valtrex) 500 mg BID PO 11/10/16 09:00 11/11/16 09:23 Ondansetron HCl 8 mg 8 mg TID PO 11/10/16 10:00 11/11/16 09:23 Sodium Bicarbonate 75 meq/Sodium Chloride 1,075 ml @ 75 mls/hr [id number] IV 11/10/16 16:30 11/10/16 22:07 Cefepime HCl/ Sodium Chloride (Maxipime Inj/NS Inj) 100 ml @ 200 mls/hr Q24H IV 11/11/16 02:00 11/11/16 02:56 Objective Remarks GENERAL: Middle aged male upright in bed in nad. SKIN: Warm and dry. HEAD: Normocephalic. EYES: No injection or drainage. NECK: Supple, trachea midline. CARDIOVASCULAR: Regular rate and rhythm RESPIRATORY: Breath sounds equal bilaterally. No accessory muscle use. GASTROINTESTINAL: Abdomen mildly distended, non tender, soft EXTREMITIES: No cyanosis NEUROLOGICAL: No obvious focal deficit. Awake, alert, and oriented x3. Assessment/Plan Problem List: (1) Colon cancer Status: Acute Plan: --diagnosed with colon cancer in 2014 in [facility]. underwent surgery. Right after the surgery he was found to have lung metastasis. -- treated initially with FOLFOX. His tumor was KRAS wild type. subsequently treated with Vectibix and maybe FOLFIRI chemotherapy, he is not sure. --subsequently moved to [place] has been going to [facility] seeing Dr. Diggs. --had been on capecitabine 2g BID and Vectibix for the last several months. repeat scan showed that he had a good response. capecitabine was tapered down to 2 tablets twice a day. --recently the restaging scan shows that the lung nodules were getting larger and he was advised to increase the capecitabine to 3 tablets twice a day. finished a 2 weeks course just a week ago. --is due for another cycle of capecitabine, next week Sunday and Vectibix on Sunday. (2) Diarrhea Status: Acute Plan: --severe diarrhea which is most likely due to the capecitabine chemotherapy. --on hydration. -- If diarrhea does not improve then we will add Imodium (3) KEMAR (acute kidney injury) Status: Acute Plan: --likely d/t dehydration --nephrology following. Assessment 66y/o with h/o colon cancer, admitted with severe diarrhea h/o Hypertension, diabetes mellitus, colon cancer diagnosed in 2014 with lung metastasis. Attending Statement Still complaining of severe diarrhea.Moved 20 times today Start Imodium Start making urine Continue hydration And electrolyte support Discuss with patient and I will follow The exam, history, and the medical decision-making described in the above note were completed with the assistance of the mid-level provider. I reviewed and agree with the findings presented. I attest that I had a [id number] encounter with the patient on the same day, and personally performed and documented my assessment and findings in the medical record. Problem Qualifiers (1) Colon cancer: Qualified Code: C18.9 - Malignant neoplasm of colon, unspecified part of colon (2) Diarrhea: Qualified Code: R19.7 - Diarrhea, unspecified type Yamileth Garcia Nov 11, 2016 11:28 Archie Arnold MD Nov 12, 2016 00:00
[2016-11-11] MEDS: MAGNESIUM SULFATE 1 GM PREMIX 100 ML IV SCH (13:38)
[2016-11-11] MEDS: SODIUM BICARBONATE 8.4% INJ 75 MEQ in SODIUM CHLOR 0.45% 1000 ML INJ 1,000 ML IV SCH (13:42)
[2016-11-11] MEDS: LOPERAMIDE HCL 2 MG CAP PO PRN ×5 (13:46→22:00)
[2016-11-11] MEDS ORDERED: DEXTROSE 50% IN WATER 50 ML VIAL(D50) IV PRN (14:30)
[2016-11-11] MEDS ORDERED: GLUCAGON 1 MG/ML VIAL OTHER PRN (14:30)
[2016-11-11] MEDS ORDERED: SODIUM CHLORID 0.9% 500 ML INJ 500 ML IV SCH (14:30)
--- NOTE | 2016-11-11 16:03 | HHI.PR ---
Subjective Subjective Remarks HR elevated, afib with RVR up to 130s denies any hx no cp no sob no palpitations no dizziness continue with diarrhea appetite better today no abd pain urine brittni colored in gonzalez blood glucose elevated BP marginal 90s Review of Systems Constitutional Constitutional Remarks 12 point ros completed, negative except as noted above Vitals/Results Intake & Output 11/10/16 11/10/16 11/11/16 15:00 23:00 07:00 Output Total 450 ml Balance -450 ml Output Urine Total 450 ml Vital Signs Vital Signs Date Time Temp Pulse Resp B/P Pulse Ox O2 Delivery O2 Flow Rate FiO2 11/11/16 12:20 96.3 119 21 93/56 99 11/11/16 11:13 98 21 11/11/16 08:30 96.4 116 21 90/50 98 11/11/16 04:00 97.1 78 18 97/57 100 11/11/16 01:40 98 21 11/11/16 00:00 97.4 76 18 95/52 98 11/10/16 20:00 96.3 70 18 86/52 99 11/10/16 19:32 16 11/10/16 17:59 97.0 72 18 101/60 99 11/10/16 16:57 97.5 66 16 99/55 100 CBC/BMP: 11/11/16 0400 11/11/16 0400 Lab Results Laboratory Tests Test 11/11/16 04:00 White Blood Count 7.3 TH/MM3 Red Blood Count 3.09 MIL/MM3 Hemoglobin 10.9 GM/DL Hematocrit 30.9 % Mean Corpuscular Volume 100.0 FL Mean Corpuscular Hemoglobin 35.1 PG Mean Corpuscular Hemoglobin 35.1 % Concent Red Cell Distribution Width 15.7 % Platelet Count 120 TH/MM3 Mean Platelet Volume 10.8 FL Neutrophils (%) (Auto) 56.5 % Lymphocytes (%) (Auto) 20.5 % Monocytes (%) (Auto) 21.1 % Eosinophils (%) (Auto) 1.6 % Basophils (%) (Auto) 0.3 % Neutrophils # (Auto) 4.1 TH/MM3 Lymphocytes # (Auto) 1.5 TH/MM3 Monocytes # (Auto) 1.5 TH/MM3 Eosinophils # (Auto) 0.1 TH/MM3 Basophils # (Auto) 0.0 TH/MM3 CBC Comment DIFF FINAL Differential Comment Sodium Level 131 MEQ/L Potassium Level 3.7 MEQ/L Chloride Level 102 MEQ/L Carbon Dioxide Level 15.1 MEQ/L Anion Gap 14 MEQ/L Blood Urea Nitrogen 99 MG/DL Creatinine 4.28 MG/DL Estimat Glomerular Filtration 14 ML/MIN Rate Random Glucose 233 MG/DL Calcium Level 7.5 MG/DL Phosphorus Level 5.3 MG/DL Magnesium Level 1.9 MG/DL Physical Exam General General Appearance: Well Developed, No Acute Distress, Comfortable, Malnourished Eyes Eye Exam: Pupils Equal, Pupils Reactive Ears & Nose Ears & Nose Exam: Nasal Mucosa Simla Throat Throat Exam: Oral Mucosa Simla & Moist Neck Neck Exam: Neck Supple, Trachea Midline Pulmonary Resp Exam: No Distress, Decreased Bases, Diminished Breath Sounds Cardiology CV Exam: Good Perfusion, Arrhythmia, Tachycardia Gastrointestinal/Abdomen GI Exam: Soft, Non-Tender, Bowel Sounds Present, Non-Distended Genitourinary Remarks gonzalez brittni urine Musculoskeletal MS Exam: Joints Intact Integumentary Skin Exam: Warm, Dry Extremeties Extremities Exam: No Edema, Pedal Pulses Palpable Neurologic Neuro Exam: Alert, Awake, Oriented, Speech Clear, Moving All Extremities, No Focal Deficits Psychiatric Psych Exam: Appropriate Responses VTE Prophylaxis VTE Prophylaxis Device: SCDs VTE Prophylaxis Meds: Heparin PUD Prophylasis PUD Prophylaxis: Protonix Assessment/Plan Problem List: (1) Fever (2) Hyponatremia (3) Hypomagnesemia (4) Diarrhea (5) Colon cancer (6) KEMAR (acute kidney injury) (7) Atrial fibrillation with rapid ventricular response (8) Urinary retention (9) Thrombocytopenia Assessment/Plan 66 year old male with colon cancer mets to lungs, presented with fever, diarrhea Diarrhea likely sec. to capecitabine chemotherapy. -continue with abx -negative for cdiff -oncology following -started on Imodium prn -continue IVF -Electrolyte replacement KEMAR, dehydration Hypotensive -Continue with Gonzalez, monitor intake and output -continue with sodium bicarb drip -creat inc. -Continue to hold beta marquise and MARKY inhibitor -inc. to 100/hr -NS 500 cc bolus now -appreciate nephrology input -Renal US results noted, on obstruction Afib RVR, new onset. Denies any prior history -12 lead EKG now -consult cardiology -unable to give BB or CCB due to low BP, will give NS bolus. If no improvement, will give low dose of Dig 250 mcg x 1. Will follow up -2D echo Type 2 diabetes, blood glucose uncontrolled Change to medium dose insulin sliding scale, continue with Accu-Cheks before meals and at bedtime Urinary retention, now has Gonzalez catheter in place Urology following -Continue with Gonzalez catheter for now Thrombocytopenia, received chemotherapy 2 weeks ago Repeat CBC Monitor for bleeding SCDs for DVT prophylaxis Labs in the morning Condition guarded If heart rate becomes uncontrolled and blood pressure continues to drop, he will require transfer to ICU D/W RN D/W Dr. Cuevas D/W pt and This patient was seen by myself and Dr. Cuevas, this note is written on her behalf Problem Qualifiers (1) Fever: Qualified Code: R50.9 - Fever, unspecified fever cause (2) Diarrhea: Qualified Code: R19.7 - Diarrhea, unspecified type (3) Colon cancer: Qualified Code: C18.9 - Malignant neoplasm of colon, unspecified part of colon Tasneem Taylor Nov 11, 2016 16:03
[2016-11-11] MEDS: AMIODARONE 200 MG TAB PO SCH ×2 (17:23→20:01)
--- NOTE | 2016-11-11 17:32 | MB ---
cc: UJLIO العراقي MD DATE OF CONSULTATION: 11/11/2016. REASON FOR CONSULTATION: Atrial fibrillation. HISTORY OF PRESENT ILLNESS Mr. Wells is a 66-year-old man who has had history of metastatic colon cancer. His last chemotherapy was three weeks ago. He has had profound diarrhea with hyponatremia and renal insufficiency. He did subsequently also develop atrial fibrillation with rapid ventricular rate. Cardiology was subsequently consulted. The patient denies any prior cardiac problems other than his hypertension. PAST MEDICAL HISTORY: Past medical history significant for: 1. Hypertension. 2. Diabetes. 3. Colon cancer with metastatic lung lesions. 4. Dyslipidemia. PAST SURGICAL HISTORY: Significant for: 1. Partial colon resection. 2. Hernia repair. 3. Cholecystectomy. 4. A chemotherapy port. ALLERGIES: PENICILLIN. SOCIAL HISTORY: The patient is . He occasionally has alcohol. REVIEW OF SYSTEMS: Except for what is mentioned in the history of present illness, all twelve systems are negative. PHYSICAL EXAMINATION: VITAL SIGNS: On physical exam, vital signs are 96.7, 89, 20, 99/67. GENERAL: In general, he is an obese man who is in no apparent distress. NECK: His neck is free from jugular venous distention. LUNGS: The lungs are bilaterally clear to auscultation. CARDIOVASCULAR: On cardiovascular examination, he has a normal S1 and S2. The rhythm is irregularly irregular. ABDOMEN: The abdomen is soft. EXTREMITIES: Free from edema. LABORATORY STUDIES: Values significant for: Sodium of 131, creatinine of 4.28. His hemoglobin is 10.9. IMPRESSION: 1. Atrial fibrillation with rapid ventricular rate - the patient's heart rate is currently around 120 on telemetry. He did get his atenolol today; it had been held previously. This will obviously assist with rate control, though with his low blood pressure, we cannot go up on this any further. Consequently, I am going to add amiodarone p.o. The patient is also getting fluid hydration, which should also help. Regarding the anticoagulation, the patient does have a [id number] score of 3 with a point for hypertension, 66 and diabetes. We did discuss that his CV event rate is about 3% to 5% over the course of a year. While I think it is reasonable for him to get heparin as an inpatient, I would not pursue full anticoagulation given his history of metastatic colon cancer. 2. Colon cancer - this is being managed by hematology/oncology. 3. Renal insufficiency with hyponatremia - this is being addressed by hematology/oncology. Akshat Goodwin/JCJose /5:09 PM /5:23 PM
[2016-11-11] MEDS: INSULIN DETEMIR 100 UNITS/ML VIAL SQ SCH (22:02)
[2016-11-12] VITALS (9 sets, daily range): BP systolic 101–124; BP diastolic 52–74; PULSE 68–94; RESP 17–20; TEMP 95.9–98; O2SAT 98–100
[2016-11-12] MEDS: CEFEPIME IV SCH (01:28)
[2016-11-12] MEDS: SODIUM CHLORIDE 0.9% IV SCH (01:28)
[2016-11-12] MEDS: HEPARIN SODIUM - SQ 10,000 UNITS/ML VIAL SQ SCH ×2 (03:13→17:14)
[2016-11-12] MEDS: SODIUM BICARBONATE 8.4% INJ 75 MEQ in SODIUM CHLOR 0.45% 1000 ML INJ 1,000 ML IV SCH ×3 (03:14→17:17)
[2016-11-12] MEDS: metroNIDAZOLE 500 MG INJ 100 ML IV SCH ×3 (03:15→21:13)
[2016-11-12] MEDS: INSULIN ASPART SUPPLEMENTAL SCALE SQ SCH ×4 (06:40→21:24)
[2016-11-12 07:06] LABS: HEMATOCRIT 30.7 % (39.0-51.0); MEAN CELL VOLUME 98.4 FL (80.0-100.0); MEAN CORPUSCULAR HEMOGLOBIN 35.1 PG (27.0-34.0); MEAN CORPUSCULAR HGB CONC 35.7 % (32.0-36.0); PLATELET COUNT 141 TH/MM3 (150-450); RED BLOOD COUNT 3.13 MIL/MM3 (4.50-5.90); REVIEW FLAG FINAL
[2016-11-12 07:40] LABS: BICARBONATE 19.2 MEQ/L (21.0-32.0); MAGNESIUM 1.8 MG/DL (1.5-2.5); POTASSIUM 3.4 MEQ/L (3.5-5.1)
[2016-11-12] MEDS ORDERED: POTASSIUM CHLORIDE 25 MEQ EFFERVESCENT TAB PO ONE (08:15)
[2016-11-12] MEDS: SODIUM CHLORIDE 0.9% FLUSH 10 ML FLUSH IV FLUSH SCH ×2 (08:24→21:00)
[2016-11-12] MEDS: AMIODARONE 200 MG TAB PO SCH (08:56)
[2016-11-12] MEDS: PANTOPRAZOLE SOD 20 MG DELAYED RELEASE TAB PO SCH (08:57)
[2016-11-12] MEDS: valACYclovir HCL 500 MG TAB PO SCH ×2 (08:57→21:14)
[2016-11-12] MEDS: ATENOLOL 50 MG TAB PO SCH (08:57)
[2016-11-12] MEDS: ONDANSETRON ODT 4 MG TAB PO SCH ×3 (08:58→17:09)
--- NOTE | 2016-11-12 09:09 | PD.CARD.PN ---
Subjective Subjective Remarks Pt without CV complaints Objective Medications Current Medications Medications (Trade) Dose Ordered Sig/Paula Route Start Time Stop Time Status Last Admin (NS Flush) 2 ml UNSCH PRN IV FLUSH 11/10/16 02:45 (NS Flush) 2 ml BID IV FLUSH 11/10/16 09:00 (Tylenol) 650 mg Q4H PRN PO 11/10/16 02:45 (Zofran Inj) 4 mg Q6H PRN IVP 11/10/16 02:45 (Heparin Inj) 5,000 units Q12H SQ 11/10/16 04:00 11/12/16 03:13 Naloxone HCl 0.4 mg 0.4 mg UNSCH PRN IV 11/10/16 02:45 (Flagyl 500 Mg Inj) 100 ml @ 100 mls/hr Q8H IV 11/10/16 04:00 11/12/16 03:15 (Flomax) 0.4 mg Q12HR PO 11/10/16 09:00 Hold 11/10/16 21:41 (Morphine Inj) 2 mg Q3H PRN IV PUSH 11/10/16 08:45 11/10/16 10:22 ([place] 5-325 Mg) 1 tab Q4H PRN PO 11/10/16 08:45 11/10/16 18:32 (Protonix) 20 mg DAILY PO 11/10/16 09:00 11/12/16 08:57 (Tenormin) 50 mg DAILY PO 11/10/16 09:00 11/12/16 08:57 (Compazine) 10 mg Q6H PRN PO 11/10/16 08:45 (Valtrex) 500 mg BID PO 11/10/16 09:00 11/12/16 08:57 Ondansetron HCl 8 mg 8 mg TID PO 11/10/16 10:00 11/11/16 09:23 Sodium Bicarbonate 75 meq/Sodium Chloride 1,075 ml @ 100 mls/hr [id number] IV 11/10/16 16:30 11/12/16 03:14 (Maxipime Inj/NS Inj) 100 ml @ 200 mls/hr Q24H IV 11/11/16 02:00 11/12/16 01:28 (Imodium) 2 mg UNSCH PRN PO 11/11/16 13:30 11/11/16 22:00 (D50w (Vial) Inj) 50 ml UNSCH PRN IV 11/11/16 14:30 (Glucagon Inj) 1 mg UNSCH PRN OTHER 11/11/16 14:30 (Levemir Inj) 18 units HS SQ 11/11/16 21:00 11/11/16 22:02 (Cordarone) 400 mg Q12HR PO 11/11/16 17:15 11/12/16 08:56 Vital Signs / I&O Vital Signs Date Time Temp Pulse Resp B/P Pulse Ox O2 Delivery O2 Flow Rate FiO2 11/12/16 04:00 78 11/12/16 04:00 96.2 72 18 102/53 100 11/12/16 00:00 96.5 94 17 102/61 98 11/12/16 00:00 80 11/11/16 20:00 96.6 113 18 88/45 99 11/11/16 20:00 126 11/11/16 16:47 96.7 89 20 99/67 99 11/11/16 16:12 124 11/11/16 12:20 96.3 119 21 93/56 99 11/11/16 12:09 139 11/11/16 11:13 98 21 I/O 11/11/16 11/11/16 11/11/16 11/12/16 11/12/16 11/12/16 07:00 15:00 23:00 07:00 15:00 23:00 Intake Total 1707 ml 1167 ml 240 ml Output Total 450 ml 350 ml 1300 ml Balance -450 ml 1357 ml 1167 ml -1060 ml Intake Oral 360 ml 240 ml IV Total 1347 ml 1167 ml Output Urine Total 450 ml 350 ml 1300 ml # Bowel Movements 6 3 Physical Exam GENERAL: Well developed, well nourished. No acute distress. HEENT: Jugular venous pressure is normal. CHEST: Lungs clear to auscultation bilaterally. Unlabored respiratory effort. CARDIAC: Regular rate and rhythm without S3, S4, or murmur. ABDOMEN: Soft, EXTREMITIES: No clubbing, cyanosis, or edema. Laboratory Laboratory Tests Test 11/12/16 06:20 White Blood Count 7.0 TH/MM3 Red Blood Count 3.13 MIL/MM3 Hemoglobin 11.0 GM/DL Hematocrit 30.7 % Mean Corpuscular Volume 98.4 FL Mean Corpuscular Hemoglobin 35.1 PG Mean Corpuscular Hemoglobin 35.7 % Concent Red Cell Distribution Width 16.0 % Platelet Count 141 TH/MM3 Mean Platelet Volume 10.5 FL Sodium Level 137 MEQ/L Potassium Level 3.4 MEQ/L Chloride Level 107 MEQ/L Carbon Dioxide Level 19.2 MEQ/L Anion Gap 11 MEQ/L Blood Urea Nitrogen 76 MG/DL Creatinine 2.41 MG/DL Estimat Glomerular Filtration 27 ML/MIN Rate Random Glucose 184 MG/DL Calcium Level 7.6 MG/DL Magnesium Level 1.8 MG/DL Assessment and Plan Assessment and Plan 1. Atrial fibrillation anticoagulation: [id number] score of 3 with a point for hypertension, 66 and diabetes. -CV event rate is about 3% to 5% over the course of a year. While I think it is reasonable for him to get heparin as an inpatient, I would not pursue full anticoagulation given his history of metastatic colon cancer. 11/12- in NSR, continue atenolol and amio HTN- atenolol Colon cancer - this is being managed by hematology/oncology. Renal insufficiency with hyponatremia - Key Awad MD Nov 12, 2016 09:09 Key Awad MD Nov 12, 2016 09:09
--- NOTE | 2016-11-12 10:20 | PD.ONC.PN ---
Subjective Subjective Remarks Afebrile overnight. Diarrhea slowing a bit. Feeling much better today. likes the imodium, does not want to try anything stronger for fear of being constipated. 1650cc UO/24hrs Objective Data Date Time Temp Pulse Resp B/P Pulse Ox O2 Delivery O2 Flow Rate FiO2 11/12/16 04:00 78 11/12/16 04:00 96.2 72 18 102/53 100 11/12/16 00:00 96.5 94 17 102/61 98 11/12/16 00:00 80 11/11/16 20:00 96.6 113 18 88/45 99 11/11/16 20:00 126 11/11/16 16:47 96.7 89 20 99/67 99 11/11/16 16:12 124 11/11/16 12:20 96.3 119 21 93/56 99 11/11/16 12:09 139 11/11/16 11:13 98 21 11/12/16 11/12/16 11/12/16 07:00 15:00 23:00 Intake Total 240 ml Output Total 1300 ml Balance -1060 ml Result Diagram: 11/12/16 0620 11/12/16 0620 Laboratory Results Laboratory Tests Test 11/12/16 06:20 White Blood Count 7.0 TH/MM3 Red Blood Count 3.13 MIL/MM3 Hemoglobin 11.0 GM/DL Hematocrit 30.7 % Mean Corpuscular Volume 98.4 FL Mean Corpuscular Hemoglobin 35.1 PG Mean Corpuscular Hemoglobin 35.7 % Concent Red Cell Distribution Width 16.0 % Platelet Count 141 TH/MM3 Mean Platelet Volume 10.5 FL Sodium Level 137 MEQ/L Potassium Level 3.4 MEQ/L Chloride Level 107 MEQ/L Carbon Dioxide Level 19.2 MEQ/L Anion Gap 11 MEQ/L Blood Urea Nitrogen 76 MG/DL Creatinine 2.41 MG/DL Estimat Glomerular Filtration 27 ML/MIN Rate Random Glucose 184 MG/DL Calcium Level 7.6 MG/DL Magnesium Level 1.8 MG/DL Culture Results Microbiology Date/Time Procedure Status Source Growth 11/10/16 00:10 Aerobic Blood Culture - Preliminary Resulted Blood Peripheral NO GROWTH IN 1 DAY 11/10/16 00:10 Anaerobic Blood Culture - Preliminary Resulted Blood Peripheral NO GROWTH IN 1 DAY 11/10/16 00:25 Aerobic Blood Culture - Preliminary Resulted Blood Peripheral NO GROWTH IN 1 DAY 11/10/16 00:25 Anaerobic Blood Culture - Preliminary Resulted Blood Peripheral NO GROWTH IN 1 DAY 11/10/16 00:40 Influenza Types A,B Antigen (TRICIA) - Final Complete Nasal Aspirate NEGATIVE FOR FLU A AND B ANTIGEN.... 11/10/16 03:12 Stool Occult Blood (TRICIA) - Final Complete Stool Stool HEMOCCULT POSITIVE Administered Medications Medications (Trade) Dose Ordered Sig/Paula Route PRN Reason Start Time Stop Time Status Last Admin Dose Admin Heparin Sodium (Porcine) 5000 units 5,000 units Q12H SQ 11/10/16 04:00 11/12/16 03:13 Metronidazole (Flagyl 500 Mg Inj) 100 ml @ 100 mls/hr Q8H IV 11/10/16 04:00 11/12/16 03:15 Tamsulosin HCl (Flomax) 0.4 mg Q12HR PO 11/10/16 09:00 Hold 11/10/16 21:41 Morphine Sulfate (Morphine Inj) 2 mg Q3H PRN IV PUSH PAIN 7-10 11/10/16 08:45 11/10/16 10:22 Acetaminophen/ Hydrocodone Bitart (Townsend 5-325 Mg) 1 tab Q4H PRN PO PAIN 3-6 11/10/16 08:45 11/10/16 18:32 Pantoprazole Sodium (Protonix) 20 mg DAILY PO 11/10/16 09:00 11/12/16 08:57 Atenolol (Tenormin) 50 mg DAILY PO 11/10/16 09:00 11/12/16 08:57 Valacyclovir HCl (Valtrex) 500 mg BID PO 11/10/16 09:00 11/12/16 08:57 Ondansetron HCl 8 mg 8 mg TID PO 11/10/16 10:00 11/11/16 09:23 Sodium Bicarbonate 75 meq/Sodium Chloride 1,075 ml @ 100 mls/hr [id number] IV 11/10/16 16:30 11/12/16 03:14 Cefepime HCl/ Sodium Chloride (Maxipime Inj/NS Inj) 100 ml @ 200 mls/hr Q24H IV 11/11/16 02:00 11/12/16 01:28 Loperamide HCl (Imodium) 2 mg UNSCH PRN PO DIARRHEA 11/11/16 13:30 11/11/16 22:00 Insulin Detemir (Levemir Inj) 18 units HS SQ 11/11/16 21:00 11/11/16 22:02 Objective Remarks GENERAL: Middle aged male sitting up in bed. SKIN: Warm and dry. HEAD: Normocephalic. EYES: No injection or drainage. NECK: Supple, trachea midline. CARDIOVASCULAR: Regular rate and rhythm RESPIRATORY: Breath sounds equal bilaterally. No accessory muscle use. GASTROINTESTINAL: Abdomen nontender, mildly distended. EXTREMITIES: No cyanosis NEUROLOGICAL: No obvious focal deficit. Awake, alert, and oriented x3. Assessment/Plan Problem List: (1) Diarrhea Status: Acute Plan: 11/12: improving with imodium. continue imodium and hydration --severe diarrhea which is most likely due to the capecitabine chemotherapy. --on hydration. --PRN immodium (2) KEMAR (acute kidney injury) Status: Acute Plan: 11/12--improving --likely d/t dehydration --nephrology following. (3) Colon cancer Status: Acute Plan: --diagnosed with colon cancer in 2014 in [facility]. underwent surgery. Right after the surgery he was found to have lung metastasis. -- treated initially with FOLFOX. His tumor was KRAS wild type. subsequently treated with Vectibix and maybe FOLFIRI chemotherapy, he is not sure. --subsequently moved to [place] has been going to [facility] seeing Dr. Diggs. --had been on capecitabine 2g BID and Vectibix for the last several months. repeat scan showed that he had a good response. capecitabine was tapered down to 2 tablets twice a day. --recently the restaging scan shows that the lung nodules were getting larger and he was advised to increase the capecitabine to 3 tablets twice a day. finished a 2 weeks course just a week ago. --is due for another cycle of capecitabine, next week Sunday and Vectibix on Sunday. Assessment 66y/o with h/o colon cancer, admitted with severe diarrhea h/o Hypertension, diabetes mellitus, colon cancer diagnosed in 2014 with lung metastasis. Attending Statement Still has severe diarrhea Renal failure is improving with hydration Start lomotil and sandostatin For severe diarrhea Discuss with patient and family The exam, history, and the medical decision-making described in the above note were completed with the assistance of the mid-level provider. I reviewed and agree with the findings presented. I attest that I had a [id number] encounter with the patient on the same day, and personally performed and documented my assessment and findings in the medical record. Problem Qualifiers (1) Diarrhea: Qualified Code: R19.7 - Diarrhea, unspecified type (2) Colon cancer: Qualified Code: C18.9 - Malignant neoplasm of colon, unspecified part of colon Yamileth Garcia Nov 12, 2016 10:20 Archie Arnold MD Nov 12, 2016 22:30
--- NOTE | 2016-11-12 11:52 | HHI.NPPN ---
Subjective Renal Failure: Acute History of Present Illness 66 y/o male patient with a hx of metastatic colon cancer. His last chemotherapy was 3 weeks ago. For the past two weeks he has had very watery diarrhea, nausea , and weakness. He came to ER for evaluation. PMH of DM II, HTN, no baseline Creatinine available. Additional Remarks Patient is alert, no nausea, still has loose BM, but improving, started eating better. Review of Systems General Constitutional: Fatigue Cardiovascular Cardiac: GUARDADO Gastrointestinal Gastrointestinal: Abdominal Pain, Nausea & Vomiting, Diarrhea Objective Data Data 11/11/16 11/12/16 19:00 07:00 Intake Total 2874 ml 240 ml Output Total 350 ml 1300 ml Balance 2524 ml -1060 ml Intake Oral 360 ml 240 ml IV Total 2514 ml Output Urine Total 350 ml 1300 ml # Bowel Movements 6 3 Vital Signs Date Time Temp Pulse Resp B/P Pulse Ox O2 Delivery O2 Flow Rate FiO2 11/12/16 08:10 76 11/12/16 08:00 95.9 71 20 104/74 99 11/12/16 04:00 78 11/12/16 04:00 96.2 72 18 102/53 100 11/12/16 00:00 96.5 94 17 102/61 98 11/12/16 00:00 80 11/11/16 20:00 96.6 113 18 88/45 99 11/11/16 20:00 126 11/11/16 16:47 96.7 89 20 99/67 99 11/11/16 16:12 124 11/11/16 12:20 96.3 119 21 93/56 99 11/11/16 12:09 139 -: 11/12/16 0620 11/12/16 0620 Physical Exam General Appearance: Well Developed, No Acute Distress, Comfortable, Malnourished Eyes Eye Exam: Pupils Equal, Pupils Reactive Ears & Nose Ears & Nose Exam: Nasal Mucosa [place] Throat Throat Exam: Oral Mucosa [place] & Moist Neck Neck Exam: Neck Supple, Trachea Midline Pulmonary Resp Exam: No Distress, Decreased Bases, Diminished Breath Sounds Cardiology CV Exam: Good Perfusion, Arrhythmia, Tachycardia Gastrointestinal/Abdomen GI Exam: Soft, Non-Tender, Bowel Sounds Present, Non-Distended Musculoskeletal MS Exam: Joints Intact Integumentary Skin Exam: Warm, Dry Extremeties Extremities Exam: No Edema, Pedal Pulses Palpable Neurologic Neuro Exam: Alert, Awake, Oriented, Speech Clear, Moving All Extremities, No Focal Deficits Psychiatric Psych Exam: Appropriate Responses VTE Prophylaxis Device: SCDs PUD Prophylasis PUD Prophylaxis: Protonix Assessment/Plan Assessment Summary: KEMAR/Acute Renal Failure Electrolyte Assessment: Metabolic Acidosis Problem List: (1) KEMAR (acute kidney injury) Plan: In a patient with no baseline labs for analysis oliguric renal failure, KEMAR: suspected prerenal azotemia due to dehydration secondary to diarrhea he has metabolic acidosis On IVF, 1/2 NS with 75 mEq sodium bicarbonate obtain urine electrolytes hold diuretics, hold MARKY Urine Na. is normal, most likely has ATN causing KEMAR. Urine out put improving and Creatinine is better. Hco3 also better, continue IVF with NaHco3. (2) Fever Plan: susptected UTI on cefepime (3) Hyponatremia Plan: pseudohyponatremia, corrected sodium is 131 hypovolemic hyponatremia, start IVF follow BMP (4) Hypomagnesemia Plan: replaced, follow up lab work Problem Qualifiers (1) Fever: Qualified Code: R50.9 - Fever, unspecified fever cause Lou Sam MD Nov 12, 2016 11:51
--- NOTE | 2016-11-12 12:26 | HHI.PR ---
Subjective Subjective Remarks Patient feeling much better today, had only a small loose bowel movement, frequency has diminished since Imodium was started yesterday Having some gas pains, relieved with belching and flatus Tolerating diet well, appetite is improving Heart rate improve, 60s, back in sinus rhythm Was started on amiodarone orally yesterday Urine becoming more clear, output 1650 No chest pain No shortness of breath No fever Family at bedside Review of Systems Constitutional Constitutional Remarks 12 point ros completed, negative except as noted above Vitals/Results Intake & Output 11/11/16 11/11/16 11/12/16 15:00 23:00 07:00 Intake Total 1707 ml 1167 ml 240 ml Output Total 350 ml 1300 ml Balance 1357 ml 1167 ml -1060 ml Intake Oral 360 ml 240 ml IV Total 1347 ml 1167 ml Output Urine Total 350 ml 1300 ml # Bowel Movements 6 3 Vital Signs Vital Signs Date Time Temp Pulse Resp B/P Pulse Ox O2 Delivery O2 Flow Rate FiO2 11/12/16 08:10 76 11/12/16 08:00 95.9 71 20 104/74 99 11/12/16 04:00 78 11/12/16 04:00 96.2 72 18 102/53 100 11/12/16 00:00 96.5 94 17 102/61 98 11/12/16 00:00 80 11/11/16 20:00 96.6 113 18 88/45 99 11/11/16 20:00 126 11/11/16 16:47 96.7 89 20 99/67 99 11/11/16 16:12 124 CBC/BMP: 11/12/16 0620 11/12/16 0620 Lab Results Laboratory Tests Test 11/12/16 06:20 White Blood Count 7.0 TH/MM3 Red Blood Count 3.13 MIL/MM3 Hemoglobin 11.0 GM/DL Hematocrit 30.7 % Mean Corpuscular Volume 98.4 FL Mean Corpuscular Hemoglobin 35.1 PG Mean Corpuscular Hemoglobin 35.7 % Concent Red Cell Distribution Width 16.0 % Platelet Count 141 TH/MM3 Mean Platelet Volume 10.5 FL Sodium Level 137 MEQ/L Potassium Level 3.4 MEQ/L Chloride Level 107 MEQ/L Carbon Dioxide Level 19.2 MEQ/L Anion Gap 11 MEQ/L Blood Urea Nitrogen 76 MG/DL Creatinine 2.41 MG/DL Estimat Glomerular Filtration 27 ML/MIN Rate Random Glucose 184 MG/DL Calcium Level 7.6 MG/DL Magnesium Level 1.8 MG/DL Physical Exam General General Appearance: Well Developed, No Acute Distress, Comfortable, Malnourished Eyes Eye Exam: Pupils Equal, Pupils Reactive Ears & Nose Ears & Nose Exam: Nasal Mucosa [place] Throat Throat Exam: Oral Mucosa [place] & Moist Neck Neck Exam: Neck Supple, Trachea Midline Pulmonary Resp Exam: No Distress, Decreased Bases, Diminished Breath Sounds Cardiology CV Exam: Good Perfusion, Arrhythmia, Tachycardia Gastrointestinal/Abdomen GI Exam: Soft, Non-Tender, Bowel Sounds Present, Non-Distended Genitourinary Remarks gonzalez brittni urine Musculoskeletal MS Exam: Joints Intact Integumentary Skin Exam: Warm, Dry Extremeties Extremities Exam: No Edema, Pedal Pulses Palpable Neurologic Neuro Exam: Alert, Awake, Oriented, Speech Clear, Moving All Extremities, No Focal Deficits Psychiatric Psych Exam: Appropriate Responses VTE Prophylaxis VTE Prophylaxis Device: SCDs VTE Prophylaxis Meds: Heparin PUD Prophylasis PUD Prophylaxis: Protonix Assessment/Plan Problem List: (1) Fever (2) Hyponatremia (3) Hypomagnesemia (4) Diarrhea (5) Colon cancer (6) KEMAR (acute kidney injury) (7) Atrial fibrillation with rapid ventricular response (8) Urinary retention (9) Thrombocytopenia Assessment/Plan 66 year old male with colon cancer mets to lungs, presented with fever, diarrhea Diarrhea likely sec. to capecitabine chemotherapy. -continue with abx -negative for cdiff -oncology following -Continue with Imodium prn -Decrease IV fluids to 75 an hour -Replace K -Diarrhea improving, less frequency and amount. KEMAR, dehydration Hypotensive -Continue with Gonzalez, monitor intake and output, will DC Gonzalez in the morning -continue with sodium bicarb drip -NewsiT inc. -Continue to hold beta marquise and MARKY inhibitor -Continue with IV fluid -appreciate nephrology input -Renal US results noted, on obstruction -Creatinine markedly improved today, creatinine 2.41 from 4.28. Urine output improved. Afib RVR, new onset. Denies any prior history -Appreciate cardiology input, was started on amiodarone, given 400 mg by mouth every 12, decreased to 200 mg by mouth daily. -Unable to use BB or CCB due to low blood pressure -2D echo pending -CHADS-VASc score 3, pt. not a candidate for anticoagulation due to metastatic colon cancer. Dr. Awad discussed with patient and . For now okay to continue with heparin subcutaneous. -We will resume atenolol when systolic blood pressure greater than 110 Type 2 diabetes, blood glucose uncontrolled. Blood glucose 180s to 260s, some improvement Continue medium dose insulin sliding scale, continue with Accu-Cheks before meals and at bedtime -Continue with Levemir 18 units subcutaneous daily Urinary retention, now has Gonzalez catheter in place Urology following -Continue with Gonzalez catheter for now Thrombocytopenia, received chemotherapy 2 weeks ago -Monitor CBC, platelets improved, 141 Monitor for bleeding SCDs for DVT prophylaxis Patient improving slowly, not ready for discharge, discussed with patient and his . Patient has a follow-up appointment at [facility] in the morning Discharge planning in progress, hopefully home in 2 days if renal function continues to improve and has less diarrhea D/W RN D/W Dr. Cuevas D/W pt and This patient was seen by myself and Dr. Cuevas, this note is written on her behalf Problem Qualifiers (1) Fever: Qualified Code: R50.9 - Fever, unspecified fever cause (2) Diarrhea: Qualified Code: R19.7 - Diarrhea, unspecified type (3) Colon cancer: Qualified Code: C18.9 - Malignant neoplasm of colon, unspecified part of colon Tasneem Taylor Nov 12, 2016 12:26
--- NOTE | 2016-11-12 16:46 | ECHRPT ---
Indication: ATRIAL FIBRILLATION CONCLUSIONS very techniqually limited study The left ventricular systolic function is normal with an estimated ejection fraction in the range of 50-55%. Doppler parameters are consistent with impaired left ventricular relaxtion (grade 1 diastolic dysfun ction). BP: 93 / 56 HR: Rhythm: Sinus MEASUREMENTS (Male / Female) Normal Values Technical Quality:Very technically difficult study M-MODE LV Diastolic Diameter MM 3.6 cm 4.2 - 5.9 / 3.9 - 5.3 cm LV Systolic Diameter MM 2.6 cm LV Ejection Fraction MM Teich 54.8 % IVS Diastolic Thickness MM 1.6 cm 0.6 - 1.0 / 0.6 - 0.9 cm LVPW Diastolic Thickness MM 1.6 cm 0.6 - 1.0 / 0.6 - 0.9 cm LV Relative Wall Thickness MM 0.9 0.24 - 0.42 / 0.22 - 0.42 RV Diastolic Diameter MM 3.2 cm DOPPLER AV Peak Velocity 149.0 cm/s AV Peak Gradient 8.9 mmHg AV Mean Gradient 5.0 mmHg AV Velocity Time Integral 23.8 cm LVOT Peak Velocity 103.0 cm/s LVOT Peak Gradient 4.2 mmHg LVOT Velocity Time Integral 17.5 cm Mitral E Point Velocity 50.8 cm/s Mitral A Point Velocity 62.7 cm/s Mitral E to A Ratio 0.8 TR Peak Velocity 201.0 cm/s TR Peak Gradient 16.2 mmHg FINDINGS LEFT VENTRICLE Mildly dilated left ventricle. The left ventricular systolic function is normal with an estimated ejection fraction in the range of 50-60%. Moderate concentric left ventricular hypertrophy. Doppler parameters are consistent with impaired left ventricular relaxtion (grade 1 diastolic dysfun ction). RIGHT VENTRICLE The right ventricle is moderately dilated. The RV is measuring at 75 x 43 mm. Jermain Martínez MD, FACC, FSCAI (Electronically Signed) Final Date:12 November 2016 16:45
[2016-11-12] MEDS: OCTREOTIDE INJ 100 MCG/ML VIAL SQ SCH ×2 (17:42→21:20)
[2016-11-12] MEDS: DIPHENOXYLATE/ATROPINE 2.5 MG/0.025 MG TAB PO SCH ×3 (17:42→23:35)
[2016-11-12] MEDS: INSULIN DETEMIR 100 UNITS/ML VIAL SQ SCH (21:25)
[2016-11-13] VITALS (7 sets, daily range): BP systolic 99–144; BP diastolic 48–71; PULSE 60–73; RESP 16–18; TEMP 96.3–99; O2SAT 97–100
[2016-11-13] MEDS: CEFEPIME IV SCH (01:59)
[2016-11-13] MEDS: SODIUM CHLORIDE 0.9% IV SCH (01:59)
[2016-11-13] MEDS: HEPARIN SODIUM - SQ 10,000 UNITS/ML VIAL SQ SCH ×2 (03:49→18:22)
[2016-11-13] MEDS: metroNIDAZOLE 500 MG INJ 100 ML IV SCH ×2 (03:50→12:44)
[2016-11-13] MEDS: DIPHENOXYLATE/ATROPINE 2.5 MG/0.025 MG TAB PO SCH ×2 (05:15→12:00)
[2016-11-13] MEDS: OCTREOTIDE INJ 100 MCG/ML VIAL SQ SCH ×3 (05:15→22:00)
[2016-11-13] MEDS: INSULIN ASPART SUPPLEMENTAL SCALE SQ SCH ×3 (06:07→18:20)
--- NOTE | 2016-11-13 07:37 | PD.CARD.PN ---
Subjective Subjective Remarks PT without CV complaints Objective Medications Current Medications Medications (Trade) Dose Ordered Sig/Paula Route Start Time Stop Time Status Last Admin (NS Flush) 2 ml UNSCH PRN IV FLUSH 11/10/16 02:45 (NS Flush) 2 ml BID IV FLUSH 11/10/16 09:00 (Tylenol) 650 mg Q4H PRN PO 11/10/16 02:45 (Zofran Inj) 4 mg Q6H PRN IVP 11/10/16 02:45 (Heparin Inj) 5,000 units Q12H SQ 11/10/16 04:00 11/13/16 03:49 Naloxone HCl 0.4 mg 0.4 mg UNSCH PRN IV 11/10/16 02:45 (Flagyl 500 Mg Inj) 100 ml @ 100 mls/hr Q8H IV 11/10/16 04:00 11/13/16 03:50 (Flomax) 0.4 mg Q12HR PO 11/10/16 09:00 Hold 11/10/16 21:41 (Morphine Inj) 2 mg Q3H PRN IV PUSH 11/10/16 08:45 11/10/16 10:22 ([place] 5-325 Mg) 1 tab Q4H PRN PO 11/10/16 08:45 11/10/16 18:32 (Protonix) 20 mg DAILY PO 11/10/16 09:00 11/12/16 08:57 (Tenormin) 50 mg DAILY PO 11/10/16 09:00 11/12/16 08:57 (Compazine) 10 mg Q6H PRN PO 11/10/16 08:45 (Valtrex) 500 mg BID PO 11/10/16 09:00 11/12/16 21:14 Ondansetron HCl 8 mg 8 mg TID PO 11/10/16 10:00 11/11/16 09:23 Sodium Bicarbonate 75 meq/Sodium Chloride 1,075 ml @ 75 mls/hr [id number] IV 11/10/16 16:30 11/12/16 17:17 (Maxipime Inj/NS Inj) 100 ml @ 200 mls/hr Q24H IV 11/11/16 02:00 11/13/16 01:59 (Imodium) 2 mg UNSCH PRN PO 11/11/16 13:30 11/11/16 22:00 (D50w (Vial) Inj) 50 ml UNSCH PRN IV 11/11/16 14:30 (Glucagon Inj) 1 mg UNSCH PRN OTHER 11/11/16 14:30 (Levemir Inj) 18 units HS SQ 11/11/16 21:00 11/12/16 21:25 (Cordarone) 200 mg DAILY PO 11/13/16 09:00 (Lomotil Tab) 2 tab Q6HR PO 11/12/16 17:15 11/13/16 05:15 (SandoSTATIN INJ) 100 mcg Q8HR SQ 11/12/16 17:15 11/13/16 05:15 Vital Signs / I&O Vital Signs Date Time Temp Pulse Resp B/P Pulse Ox O2 Delivery O2 Flow Rate FiO2 11/13/16 04:00 96.3 65 18 103/48 97 11/13/16 04:00 64 11/13/16 00:00 61 11/13/16 00:00 99.0 71 18 99/67 100 11/12/16 20:00 70 11/12/16 20:00 98.0 72 17 124/64 99 11/12/16 16:46 97.4 77 20 112/69 99 11/12/16 16:03 75 11/12/16 12:42 95.9 68 20 101/52 100 11/12/16 12:07 74 11/12/16 08:10 76 11/12/16 08:00 95.9 71 20 104/74 99 I/O 11/12/16 11/12/16 11/12/16 11/13/16 11/13/16 11/13/16 07:00 15:00 23:00 07:00 15:00 23:00 Intake Total 240 ml 2291 ml 240 ml 0 ml Output Total 1300 ml 1350 ml 700 ml 450 ml Balance -1060 ml 941 ml -460 ml -450 ml Intake Oral 240 ml 480 ml 240 ml 0 ml IV Total 1811 ml Output Urine Total 1300 ml 1350 ml 700 ml 450 ml # Bowel Movements 3 5 1 0 Physical Exam GENERAL: Well developed, well nourished. No acute distress. HEENT: Jugular venous pressure is normal. CHEST: Lungs clear to auscultation bilaterally. Unlabored respiratory effort. CARDIAC: Regular rate and rhythm without S3, S4, or murmur. ABDOMEN: Soft, EXTREMITIES: No clubbing, cyanosis, or edema. Assessment and Plan Assessment and Plan 1. Atrial fibrillation -episode RVR yesterday, BP and HR too low to increase atenolol => change to cardizem and increase amio anticoagulation: [id number] score of 3 with a point for hypertension, 66 and diabetes. -CV event rate is about 3% to 5% over the course of a year. -anticoagulation remains controversial risk/bene with anemia, colon cancer with mets HTN- Colon cancer - this is being managed by hematology/oncology. Renal insufficiency with hyponatremia - Key Awad MD Nov 13, 2016 07:37
[2016-11-13 07:51] LABS: HEMATOCRIT 30.6 % (39.0-51.0); MEAN CELL VOLUME 101.4 FL (80.0-100.0); MEAN CORPUSCULAR HEMOGLOBIN 34.6 PG (27.0-34.0); MEAN CORPUSCULAR HGB CONC 34.1 % (32.0-36.0); PLATELET COUNT 164 TH/MM3 (150-450); RED BLOOD COUNT 3.02 MIL/MM3 (4.50-5.90); REVIEW FLAG FINAL; WHITE BLOOD COUNT 8.5 TH/MM3 (4.0-11.0)
[2016-11-13 08:21] LABS: MAGNESIUM 1.6 MG/DL (1.5-2.5); POTASSIUM 3.3 MEQ/L (3.5-5.1)
--- NOTE | 2016-11-13 08:29 | HHI.PR ---
Subjective Patient symptoms today Pt seen and examined. BM this AM. Feeling better. Flomax stopped due to hypotension. Objective Vital Signs Vital Signs Date Time Temp Pulse Resp B/P Pulse Ox O2 Delivery O2 Flow Rate FiO2 11/13/16 04:00 96.3 65 18 103/48 97 11/13/16 04:00 64 11/13/16 00:00 61 11/13/16 00:00 99.0 71 18 99/67 100 11/12/16 20:00 70 11/12/16 20:00 98.0 72 17 124/64 99 11/12/16 16:46 97.4 77 20 112/69 99 11/12/16 16:03 75 11/12/16 12:42 95.9 68 20 101/52 100 11/12/16 12:07 74 Result Diagram: 11/13/1651711/13/16517 Objective Remarks Abd:soft,nt,nd Ricardo: urine clear Medications and IVs Current Medications Medications (Trade) Dose Ordered Sig/Paula Route Start Time Stop Time Status Last Admin (NS Flush) 2 ml UNSCH PRN IV FLUSH 11/10/16 02:45 (NS Flush) 2 ml BID IV FLUSH 11/10/16 09:00 (Tylenol) 650 mg Q4H PRN PO 11/10/16 02:45 (Zofran Inj) 4 mg Q6H PRN IVP 11/10/16 02:45 (Heparin Inj) 5,000 units Q12H SQ 11/10/16 04:00 11/13/16 03:49 Naloxone HCl 0.4 mg 0.4 mg UNSCH PRN IV 11/10/16 02:45 (Flagyl 500 Mg Inj) 100 ml @ 100 mls/hr Q8H IV 11/10/16 04:00 11/13/16 03:50 (Flomax) 0.4 mg Q12HR PO 11/10/16 09:00 Hold 11/10/16 21:41 (Morphine Inj) 2 mg Q3H PRN IV PUSH 11/10/16 08:45 11/10/16 10:22 ([place] 5-325 Mg) 1 tab Q4H PRN PO 11/10/16 08:45 11/10/16 18:32 (Protonix) 20 mg DAILY PO 11/10/16 09:00 11/12/16 08:57 (Compazine) 10 mg Q6H PRN PO 11/10/16 08:45 (Valtrex) 500 mg BID PO 11/10/16 09:00 11/12/16 21:14 Ondansetron HCl 8 mg 8 mg TID PO 11/10/16 10:00 11/11/16 09:23 Sodium Bicarbonate 75 meq/Sodium Chloride 1,075 ml @ 75 mls/hr [id number] IV 11/10/16 16:30 11/12/16 17:17 (Maxipime Inj/NS Inj) 100 ml @ 200 mls/hr Q24H IV 11/11/16 02:00 11/13/16 01:59 (Imodium) 2 mg UNSCH PRN PO 11/11/16 13:30 11/11/16 22:00 (D50w (Vial) Inj) 50 ml UNSCH PRN IV 11/11/16 14:30 (Glucagon Inj) 1 mg UNSCH PRN OTHER 11/11/16 14:30 (Levemir Inj) 18 units HS SQ 11/11/16 21:00 11/12/16 21:25 (Lomotil Tab) 2 tab Q6HR PO 11/12/16 17:15 11/13/16 05:15 (SandoSTATIN INJ) 100 mcg Q8HR SQ 11/12/16 17:15 11/13/16 05:15 (Cordarone) 400 mg BID PO 11/13/16 09:00 (Cardizem Cd) 120 mg DAILY PO 11/13/16 09:00 Assessment and Plan Assessment and Plan 66 y.o male admitted with ARF and symptoms of BPH with obstruction. Void trial in a few days once creatinine baselines. Corona Mann DO Nov 13, 2016 08:29
[2016-11-13] MEDS ORDERED: AMIODARONE 200 MG TAB PO SCH (09:00)
[2016-11-13] MEDS: ONDANSETRON ODT 4 MG TAB PO SCH ×3 (09:00→18:00)
[2016-11-13] MEDS ORDERED: POTASSIUM CHLORIDE 10 MEQ CONTROLLED RELEASE TAB PO ONE (09:15)
[2016-11-13] MEDS: valACYclovir HCL 500 MG TAB PO SCH (10:04)
[2016-11-13] MEDS: DILTIAZEM-CD 120 MG CAP ER PO SCH (10:04)
[2016-11-13] MEDS: PANTOPRAZOLE SOD 20 MG DELAYED RELEASE TAB PO SCH (10:04)
[2016-11-13] MEDS: AMIODARONE 200 MG TAB PO SCH (10:04)
--- NOTE | 2016-11-13 11:51 | HHI.NPPN ---
Subjective Renal Failure: Acute Interval History Renal function is better. He is wanting gonzalez to be removed. Diarrhea has subsided. (Julienne Willson) Review of Systems General Constitutional: Fatigue (Julienne Willson) Gastrointestinal Gastrointestinal: Abdominal Pain, Diarrhea (Julienne Willson) Objective Data Data 11/12/16 11/13/16 19:00 07:00 Intake Total 2291 ml 240 ml Output Total 1350 ml 1150 ml Balance 941 ml -910 ml Intake Oral 480 ml 240 ml IV Total 1811 ml Output Urine Total 1350 ml 1150 ml # Bowel Movements 5 1 Vital Signs Date Time Temp Pulse Resp B/P Pulse Ox O2 Delivery O2 Flow Rate FiO2 11/13/16 08:00 98.1 73 16 121/71 97 11/13/16 04:00 96.3 65 18 103/48 97 11/13/16 04:00 64 11/13/16 00:00 61 11/13/16 00:00 99.0 71 18 99/67 100 11/12/16 20:00 70 11/12/16 20:00 98.0 72 17 124/64 99 11/12/16 16:46 97.4 77 20 112/69 99 11/12/16 16:03 75 11/12/16 12:42 95.9 68 20 101/52 100 11/12/16 12:07 74 (Julienne Willson) -: 11/13/16 0518 11/13/16 0518 Imaging Last Impressions Renal Ultrasound 11/10/16 0000 Signed Impressions: Service Date/Time: Thursday, November 10, 2016 08:32 - CONCLUSION: No evidence of hydronephrosis. Ben Mccloud MD Chest X-Ray 11/09/16 0000 Signed Impressions: Service Date/Time: October 23:48 - CONCLUSION: 1. No acute cardiopulmonary disease. Scott Chung MD Tubes & Lines: Gonzalez Drip Comment bicarb (Julienne Willson) Physical Exam General Appearance: Well Developed, No Acute Distress, Comfortable, Malnourished ( Julienne Willson) Eyes Eye Exam: Pupils Equal, Pupils Reactive (Julienne Willson) Ears & Nose Ears & Nose Exam: Nasal Mucosa [place] (Julienne Willson) Throat Throat Exam: Oral Mucosa [place] & Moist (Julienne Willson) Neck Neck Exam: Neck Supple, Trachea Midline (Julienne Willson) Pulmonary Resp Exam: No Distress, Decreased Bases, Diminished Breath Sounds (Julienne Willson) Cardiology CV Exam: Regular, Good Perfusion (Julienne Willson) Gastrointestinal/Abdomen GI Exam: Soft, Non-Tender, Bowel Sounds Present, Non-Distended (Julienne Willson) Musculoskeletal MS Exam: Joints Intact, Normal Tone (Julienne Willson) Integumentary Skin Exam: Warm, Dry (Julienne Willson) Extremeties Extremities Exam: No Edema, Pedal Pulses Palpable (Julienne Willson) Neurologic Neuro Exam: Alert, Awake, Oriented, Speech Clear, Moving All Extremities, No Focal Deficits (Julienne Willson) Psychiatric Psych Exam: Appropriate Responses (Julienne Willson) VTE Prophylaxis Device: SCDs (Julienne Willson) PUD Prophylasis PUD Prophylaxis: Protonix (Julienne Willson) Assessment/Plan Discussed Condition With: Patient, Spouse Assessment Summary: KEMAR/Acute Renal Failure, Hypotension Electrolyte Assessment: Metabolic Acidosis Problem List: (1) KEMAR (acute kidney injury) Plan: In a patient with no baseline labs for analysis KEMAR: suspected prerenal azotemia due to dehydration renal function has improved continue IVF blood pressure has been borderline low today acidosis is correcting voiding trial today per urology hold diuretics, MARKY, and flomax at this time repeat renal panel in AM avoid nephrotoxins (2) Fever Plan: susptected UTI on cefepime (3) Hyponatremia Plan: pseudohyponatremia, corrected sodium is 131 hypovolemic hyponatremia, improving with IVF, continue monitor (4) Hypomagnesemia Plan: corrected, though to be due to chemo agents (5) Colon cancer Plan: oncology following due today for chemo outpatient per patient (Julienne Willson) Plan patient was seen and examined. Renal function has improved with hydration. Gonzalez can be removed. Diarrhea has improved. Taper off fluids. (Abbe Parker MD) Problem Qualifiers (1) Fever: Qualified Code: R50.9 - Fever, unspecified fever cause (2) Colon cancer: Qualified Code: C18.9 - Malignant neoplasm of colon, unspecified part of colon Julienne Willson [facility] Nov 13, 2016 11:51 Abbe Parker MD Nov 13, 2016 16:39
[2016-11-13] MEDS: SODIUM BICARBONATE 8.4% INJ 75 MEQ in SODIUM CHLOR 0.45% 1000 ML INJ 1,000 ML IV SCH ×2 (12:18→23:07)
--- NOTE | 2016-11-13 14:17 | EKG ---
Date Performed: 11/11/2016 Time Performed: 15:08:41 PTAGE: 66 years EKG: ATRIAL FIBRILLATION WITH RAPID VENTRICULAR RESPONSE LOW QRS VOLTAGE IN EXTREMITY LEADS Intr aventricular conduction delay ABNORMAL RHYTHM ECG NO PREVIOUS TRACING DOCTOR: Jermain Martínez Interpretating Date/Time 11/13/2016 14:16:11
--- NOTE | 2016-11-13 14:18 | PD.ONC.PN ---
Subjective Subjective Remarks Afebrile overnight. Diarrhea significantly improved. does not want to take the lomotil anymore. worried he will "get plugged up." Objective Data Date Time Temp Pulse Resp B/P Pulse Ox O2 Delivery O2 Flow Rate FiO2 11/13/16 12:00 97.7 69 18 119/71 100 11/13/16 08:00 98.1 73 16 121/71 97 11/13/16 04:00 96.3 65 18 103/48 97 11/13/16 04:00 64 11/13/16 00:00 61 11/13/16 00:00 99.0 71 18 99/67 100 11/12/16 20:00 70 11/12/16 20:00 98.0 72 17 124/64 99 11/12/16 16:46 97.4 77 20 112/69 99 11/12/16 16:03 75 11/13/16 11/13/16 11/13/16 07:00 15:00 23:00 Intake Total 0 ml Output Total 450 ml 400 ml Balance -450 ml -400 ml Result Diagram: 11/13/1618 11/13/16 0518 Laboratory Results Laboratory Tests Test 11/13/16 05:18 White Blood Count 8.5 TH/MM3 Red Blood Count 3.02 MIL/MM3 Hemoglobin 10.4 GM/DL Hematocrit 30.6 % Mean Corpuscular Volume 101.4 FL Mean Corpuscular Hemoglobin 34.6 PG Mean Corpuscular Hemoglobin 34.1 % Concent Red Cell Distribution Width 16.0 % Platelet Count 164 TH/MM3 Mean Platelet Volume 9.9 FL Sodium Level 139 MEQ/L Potassium Level 3.3 MEQ/L Chloride Level 109 MEQ/L Carbon Dioxide Level 21.0 MEQ/L Anion Gap 9 MEQ/L Blood Urea Nitrogen 47 MG/DL Creatinine 1.65 MG/DL Estimat Glomerular Filtration 42 ML/MIN Rate Random Glucose 137 MG/DL Calcium Level 7.9 MG/DL Magnesium Level 1.6 MG/DL Administered Medications Medications (Trade) Dose Ordered Sig/Paula Route PRN Reason Start Time Stop Time Status Last Admin Dose Admin Heparin Sodium (Porcine) 5000 units 5,000 units Q12H SQ 11/10/16 04:00 11/13/16 03:49 Metronidazole (Flagyl 500 Mg Inj) 100 ml @ 100 mls/hr Q8H IV 11/10/16 04:00 11/13/16 12:44 Tamsulosin HCl (Flomax) 0.4 mg Q12HR PO 11/10/16 09:00 Hold 11/10/16 21:41 Morphine Sulfate (Morphine Inj) 2 mg Q3H PRN IV PUSH PAIN 7-10 11/10/16 08:45 11/10/16 10:22 Acetaminophen/ Hydrocodone Bitart ([place] 5-325 Mg) 1 tab Q4H PRN PO PAIN 3-6 11/10/16 08:45 11/10/16 18:32 Pantoprazole Sodium (Protonix) 20 mg DAILY PO 11/10/16 09:00 11/13/16 10:04 Valacyclovir HCl (Valtrex) 500 mg BID PO 11/10/16 09:00 11/13/16 10:04 Ondansetron HCl 8 mg 8 mg TID PO 11/10/16 10:00 11/11/16 09:23 Sodium Bicarbonate 75 meq/Sodium Chloride 1,075 ml @ 75 mls/hr [id number] IV 11/10/16 16:30 11/13/16 12:18 Cefepime HCl/ Sodium Chloride (Maxipime Inj/NS Inj) 100 ml @ 200 mls/hr Q24H IV 11/11/16 02:00 11/13/16 01:59 Loperamide HCl (Imodium) 2 mg UNSCH PRN PO DIARRHEA 11/11/16 13:30 11/11/16 22:00 Insulin Detemir (Levemir Inj) 18 units HS SQ 11/11/16 21:00 11/12/16 21:25 Diphenoxylate HCl/ Atropine (Lomotil Tab) 2 tab Q6HR PO 11/12/16 17:15 11/13/16 05:15 Octreotide Acetate (SandoSTATIN INJ) 100 mcg Q8HR SQ 11/12/16 17:15 11/13/16 05:15 Amiodarone HCl (Cordarone) 400 mg BID PO 11/13/16 09:00 11/13/16 10:04 Diltiazem HCl (Cardizem Cd) 120 mg DAILY PO 11/13/16 09:00 11/13/16 10:04 Objective Remarks GENERAL: Middle aged male upright in bed in nad. SKIN: Warm and dry. HEAD: Normocephalic. EYES: No injection or drainage. NECK: Supple, trachea midline. CARDIOVASCULAR: Regular rate and rhythm RESPIRATORY: Breath sounds equal bilaterally. No accessory muscle use. GASTROINTESTINAL: Abdomen nontender, mildly distended. EXTREMITIES: No cyanosis NEUROLOGICAL: No obvious focal deficit. Awake, alert, and oriented x3. Assessment/Plan Problem List: (1) Diarrhea Status: Acute Plan: 11/13: significantly improved. will place Lomotil on PRN status --severe diarrhea which is most likely due to the capecitabine chemotherapy. --on hydration. --PRN immodium (2) KEMAR (acute kidney injury) Status: Acute Plan: 11/13--improving --likely d/t dehydration --nephrology following. (3) Colon cancer Status: Acute Plan: --diagnosed with colon cancer in 2014 in [facility]. underwent surgery. Right after the surgery he was found to have lung metastasis. -- treated initially with FOLFOX. His tumor was KRAS wild type. subsequently treated with Vectibix and maybe FOLFIRI chemotherapy, he is not sure. --subsequently moved to [place] has been going to [facility] seeing Dr. Diggs. --had been on capecitabine 2g BID and Vectibix for the last several months. repeat scan showed that he had a good response. capecitabine was tapered down to 2 tablets twice a day. --recently the restaging scan shows that the lung nodules were getting larger and he was advised to increase the capecitabine to 3 tablets twice a day. finished a 2 weeks course just a week ago. --is due for another cycle of capecitabine, next week Sunday and Vectibix on Sunday. Assessment 66y/o with h/o colon cancer, admitted with severe diarrhea h/o Hypertension, diabetes mellitus, colon cancer diagnosed in 2014 with lung metastasis. Attending Statement Diarrhea has resolved Change lomotil to PRN Continue Sandostatin ARF is resolving The exam, history, and the medical decision-making described in the above note were completed with the assistance of the mid-level provider. I reviewed and agree with the findings presented. I attest that I had a [id number] encounter with the patient on the same day, and personally performed and documented my assessment and findings in the medical record. Problem Qualifiers (1) Diarrhea: Qualified Code: R19.7 - Diarrhea, unspecified type (2) Colon cancer: Qualified Code: C18.9 - Malignant neoplasm of colon, unspecified part of colon Yamileth Garcia Nov 13, 2016 14:18 Archie Arnold MD Nov 13, 2016 23:54
--- NOTE | 2016-11-13 14:55 | HHI.PR ---
Subjective Subjective Remarks no loose stools since yesterday eating okay no abd. pain no cp no sob voiding okay, gonzalez d/c no fever overall feeling improved Review of Systems Constitutional Constitutional Remarks 12 point ros completed, negative except as noted above Vitals/Results Intake & Output 11/12/16 11/12/16 11/13/16 15:00 23:00 07:00 Intake Total 2291 ml 240 ml 0 ml Output Total 1350 ml 700 ml 450 ml Balance 941 ml -460 ml -450 ml Intake Oral 480 ml 240 ml 0 ml IV Total 1811 ml Output Urine Total 1350 ml 700 ml 450 ml # Bowel Movements 5 1 0 Vital Signs Vital Signs Date Time Temp Pulse Resp B/P Pulse Ox O2 Delivery O2 Flow Rate FiO2 11/13/16 12:00 97.7 69 18 119/71 100 11/13/16 08:00 98.1 73 16 121/71 97 11/13/16 04:00 96.3 65 18 103/48 97 11/13/16 04:00 64 11/13/16 00:00 61 11/13/16 00:00 99.0 71 18 99/67 100 11/12/16 20:00 70 11/12/16 20:00 98.0 72 17 124/64 99 11/12/16 16:46 97.4 77 20 112/69 99 11/12/16 16:03 75 CBC/BMP: 11/13/16 0518 11/13/16 0518 Lab Results Laboratory Tests Test 11/13/16 05:18 White Blood Count 8.5 TH/MM3 Red Blood Count 3.02 MIL/MM3 Hemoglobin 10.4 GM/DL Hematocrit 30.6 % Mean Corpuscular Volume 101.4 FL Mean Corpuscular Hemoglobin 34.6 PG Mean Corpuscular Hemoglobin 34.1 % Concent Red Cell Distribution Width 16.0 % Platelet Count 164 TH/MM3 Mean Platelet Volume 9.9 FL Sodium Level 139 MEQ/L Potassium Level 3.3 MEQ/L Chloride Level 109 MEQ/L Carbon Dioxide Level 21.0 MEQ/L Anion Gap 9 MEQ/L Blood Urea Nitrogen 47 MG/DL Creatinine 1.65 MG/DL Estimat Glomerular Filtration 42 ML/MIN Rate Random Glucose 137 MG/DL Calcium Level 7.9 MG/DL Magnesium Level 1.6 MG/DL Physical Exam General General Appearance: Well Developed, No Acute Distress, Comfortable, Malnourished Eyes Eye Exam: Pupils Equal, Pupils Reactive Ears & Nose Ears & Nose Exam: Nasal Mucosa [place] Throat Throat Exam: Oral Mucosa [place] & Moist Neck Neck Exam: Neck Supple, Trachea Midline Pulmonary Resp Exam: No Distress, Decreased Bases, Diminished Breath Sounds Cardiology CV Exam: Regular, Good Perfusion Gastrointestinal/Abdomen GI Exam: Soft, Non-Tender, Bowel Sounds Present, Non-Distended Genitourinary Remarks gonzalez brittni urine Musculoskeletal MS Exam: Joints Intact, Normal Tone Integumentary Skin Exam: Warm, Dry Extremeties Extremities Exam: No Edema, Pedal Pulses Palpable Neurologic Neuro Exam: Alert, Awake, Oriented, Speech Clear, Moving All Extremities, No Focal Deficits Psychiatric Psych Exam: Appropriate Responses VTE Prophylaxis VTE Prophylaxis Device: SCDs VTE Prophylaxis Meds: Heparin PUD Prophylasis PUD Prophylaxis: Protonix Assessment/Plan Problem List: (1) Fever (2) Hyponatremia (3) Hypomagnesemia (4) Diarrhea (5) Colon cancer (6) KEMAR (acute kidney injury) (7) Atrial fibrillation with rapid ventricular response (8) Urinary retention (9) Thrombocytopenia Assessment/Plan 66 year old male with colon cancer mets to lungs, presented with fever, diarrhea Diarrhea likely sec. to capecitabine chemotherapy. -continue with abx -negative for cdiff -oncology following -Continue with Imodium prn -continue IV fluids to 75 an hour -Replace K -Diarrhea improving, less frequency and amount. On Sandostatin now per heme KEMAR, dehydration Hypotensive -BP improving 120s -gonzalez removed, voiding okay, UOP improving -continue with sodium bicarb drip -Hold MARKY, BB -appreciate nephrology input -Renal US results noted, on obstruction -Creatinine markedly improved today, 1.65 Afib RVR, new onset. Denies any prior history -Appreciate cardiology input, was started on amiodarone, given 400 mg by mouth every 12, decreased to 200 mg by mouth daily. -2D echo 50-55% diastolic dysfunction. -CHADS-VASc score 3, pt. not a candidate for anticoagulation due to metastatic colon cancer. Dr. Awad discussed with patient and . For now okay to continue with heparin subcutaneous. -We will resume atenolol when systolic blood pressure greater than 110 -Amiodarone inc to 200 mg po bid, started on CCB -remains SR Type 2 diabetes, blood glucose uncontrolled. Blood glucose 180s to 260s, some improvement Continue medium dose insulin sliding scale, continue with Accu-Cheks before meals and at bedtime -Continue with Levemir 18 units subcutaneous daily Urinary retention, gonzalez dc, voiding okay Urology following Thrombocytopenia, received chemotherapy 2 weeks ago -Monitor CBC, platelets improved, 164 Monitor for bleeding SCDs for DVT prophylaxis Patient improving, renal function better. BP improved Hopefully dc in 1-2 days Labs in am D/W RN D/W Dr. Cuevas D/W pt and This patient was seen by myself and Dr. Cuevas, this note is written on her behalf Problem Qualifiers (1) Fever: Qualified Code: R50.9 - Fever, unspecified fever cause (2) Diarrhea: Qualified Code: R19.7 - Diarrhea, unspecified type (3) Colon cancer: Qualified Code: C18.9 - Malignant neoplasm of colon, unspecified part of colon Tasneem Taylor Nov 13, 2016 14:55
[2016-11-13] MEDS ORDERED: DIPHENOXYLATE/ATROPINE 2.5 MG/0.025 MG TAB PO PRN (15:00)
[2016-11-13] MEDS: SODIUM CHLORIDE 0.9% FLUSH 10 ML FLUSH IV FLUSH SCH ×2 (18:24→21:00)
[2016-11-14] VITALS (12 sets, daily range): BP systolic 111–141; BP diastolic 53–74; PULSE 55–71; RESP 17–20; TEMP 96.5–97.8; O2SAT 94–99
[2016-11-14] MEDS: valACYclovir HCL 500 MG TAB PO SCH ×3 (00:48→21:42)
[2016-11-14] MEDS: AMIODARONE 200 MG TAB PO SCH ×2 (00:48→10:22)
[2016-11-14] MEDS: INSULIN DETEMIR 100 UNITS/ML VIAL SQ SCH ×2 (01:00→21:51)
[2016-11-14] MEDS: metroNIDAZOLE 500 MG INJ 100 ML IV SCH ×3 (01:01→10:24)
[2016-11-14] MEDS: INSULIN ASPART SUPPLEMENTAL SCALE SQ SCH ×5 (01:01→21:52)
[2016-11-14] MEDS: CEFEPIME IV SCH (02:00)
[2016-11-14] MEDS: SODIUM CHLORIDE 0.9% IV SCH (02:00)
[2016-11-14] MEDS: HEPARIN SODIUM - SQ 10,000 UNITS/ML VIAL SQ SCH ×2 (04:00→16:22)
[2016-11-14] MEDS: OCTREOTIDE INJ 100 MCG/ML VIAL SQ SCH ×3 (04:19→21:50)
[2016-11-14] MEDS: ONDANSETRON ODT 4 MG TAB PO SCH ×4 (09:00→18:00)
[2016-11-14] MEDS: DILTIAZEM-CD 120 MG CAP ER PO SCH (10:22)
[2016-11-14] MEDS: PANTOPRAZOLE SOD 20 MG DELAYED RELEASE TAB PO SCH (10:22)
--- NOTE | 2016-11-14 10:22 | HHI.NPPN ---
Subjective Renal Failure: Acute Interval History Gonzalez removed. Voiding well. AM labs not resulted. Still on IVF. BMs are formed. (Julienne Willson) Review of Systems General Constitutional: Fatigue (Julienne Willson) Gastrointestinal Gastrointestinal: Abdominal Pain GI Remarks some gas (Julienne Willson) Objective Data Data 11/13/16 11/14/16 19:00 07:00 Intake Total 420 ml Output Total 650 ml Balance -230 ml Intake Oral 420 ml Output Urine Total 650 ml # Voids 3 # Bowel Movements 2 Vital Signs Date Time Temp Pulse Resp B/P Pulse Ox O2 Delivery O2 Flow Rate FiO2 11/14/16 08:41 97.8 68 20 122/62 98 11/14/16 04:27 67 11/14/16 04:00 97.7 66 17 111/53 94 11/14/16 00:05 58 11/14/16 00:00 96.5 68 18 141/74 97 11/13/16 20:06 67 11/13/16 20:00 96.6 61 17 144/61 97 11/13/16 17:00 98.1 63 16 128/65 100 11/13/16 12:00 97.7 69 18 119/71 100 (Julienne Willson) -: 11/13/16 0518 11/13/16 0518 Drip Comment bicarb (Julienne Willson) Physical Exam General Appearance: Well Developed, No Acute Distress, Comfortable, Malnourished ( Julienne Willson) Eyes Eye Exam: Pupils Equal, Pupils Reactive (Julienne Willson) Ears & Nose Ears & Nose Exam: Nasal Mucosa [place] (Julienne Willson) Throat Throat Exam: Oral Mucosa [place] & Moist (Julienne Willson) Neck Neck Exam: Neck Supple, Trachea Midline (Julienne Willson) Pulmonary Resp Exam: Clear Bilaterally, Breath Sounds Equal, No Distress (Julienne Willson) Cardiology CV Exam: Regular, Normal Sinus Rhythm, Good Perfusion (Julienne Willson) Gastrointestinal/Abdomen GI Exam: Soft, Non-Tender, Bowel Sounds Present, Positive Bowel Movement, Non- Distended (Julienne Willson) Musculoskeletal MS Exam: Joints Intact, Normal Tone (Julienne Willson) Integumentary Skin Exam: Clear, Warm, Dry, Intact (Julienne Willson) Extremeties Extremities Exam: No Edema, Pedal Pulses Palpable (Julienne Willson) Neurologic Neuro Exam: Alert, Awake, Oriented, Speech Clear, Moving All Extremities, No Focal Deficits (Julienne Willson) Psychiatric Psych Exam: Appropriate Responses (Julienne Willson) VTE Prophylaxis Device: SCDs (Julienne Willson) PUD Prophylasis PUD Prophylaxis: Protonix (Julienne Willson) Assessment/Plan Discussed Condition With: Patient, Spouse Assessment Summary: KEMAR/Acute Renal Failure Electrolyte Assessment: Metabolic Acidosis Problem List: (1) KEMAR (acute kidney injury) Plan: In a patient with no baseline labs for analysis KEMAR: suspected prerenal azotemia due to dehydration renal function has been improving, today's labs in process non oliguric, gonzalez has been removed continue IVF for now blood pressure improved to normal range hold diuretics, MARKY, resume flomax avoid nephrotoxins (2) Fever Plan: susptected UTI on cefepime (3) Hyponatremia Plan: hypovolemic hyponatremia, corrected with IVF, continue monitor labs (4) Hypomagnesemia Plan: corrected, though to be due to chemo agents (5) Colon cancer Plan: oncology following outpatient chemotherapy to be postponed until next week. (Julienne Willson) Plan patient was seen and examined. Renal labs are pending. May taper off fluids. Diarrhea has improved. (Abbe Parker MD) Problem Qualifiers (1) Fever: Qualified Code: R50.9 - Fever, unspecified fever cause (2) Colon cancer: Qualified Code: C18.9 - Malignant neoplasm of colon, unspecified part of colon Julienne Willson Nov 14, 2016 10:21 Abbe Parker MD Nov 14, 2016 11:00
[2016-11-14] MEDS: SODIUM CHLORIDE 0.9% FLUSH 10 ML FLUSH IV FLUSH SCH ×2 (10:23→21:43)
--- NOTE | 2016-11-14 11:05 | HHI.PR ---
Subjective Patient symptoms today Pt feels well. Ricardo out and voiding. Objective Vital Signs Vital Signs Date Time Temp Pulse Resp B/P Pulse Ox O2 Delivery O2 Flow Rate FiO2 11/14/16 08:41 97.8 68 20 122/62 98 11/14/16 04:27 67 11/14/16 04:00 97.7 66 17 111/53 94 11/14/16 00:05 58 11/14/16 00:00 96.5 68 18 141/74 97 11/13/16 20:06 67 11/13/16 20:00 96.6 61 17 144/61 97 11/13/16 17:00 98.1 63 16 128/65 100 11/13/16 12:00 97.7 69 18 119/71 100 Result Diagram: 11/13/1651711/13/16517 Objective Remarks Abd:soft,nt,nd Ricardo: urine clear 11/14 Abd:soft,nt,nd Medications and IVs Current Medications Medications (Trade) Dose Ordered Sig/Paula Route Start Time Stop Time Status Last Admin (NS Flush) 2 ml UNSCH PRN IV FLUSH 11/10/16 02:45 (NS Flush) 2 ml BID IV FLUSH 11/10/16 09:00 11/14/16 10:23 (Tylenol) 650 mg Q4H PRN PO 11/10/16 02:45 (Zofran Inj) 4 mg Q6H PRN IVP 11/10/16 02:45 (Heparin Inj) 5,000 units Q12H SQ 11/10/16 04:00 11/13/16 18:22 Naloxone HCl 0.4 mg 0.4 mg UNSCH PRN IV 11/10/16 02:45 (Flagyl 500 Mg Inj) 100 ml @ 100 mls/hr Q8H IV 11/10/16 04:00 11/14/16 10:24 (Flomax) 0.4 mg Q12HR PO 11/10/16 09:00 11/10/16 21:41 (Morphine Inj) 2 mg Q3H PRN IV PUSH 11/10/16 08:45 11/10/16 10:22 ([place] 5-325 Mg) 1 tab Q4H PRN PO 11/10/16 08:45 11/10/16 18:32 (Protonix) 20 mg DAILY PO 11/10/16 09:00 11/14/16 10:22 (Compazine) 10 mg Q6H PRN PO 11/10/16 08:45 (Valtrex) 500 mg BID PO 11/10/16 09:00 11/14/16 10:22 Ondansetron HCl 8 mg 8 mg TID PO 11/10/16 10:00 11/11/16 09:23 Sodium Bicarbonate 75 meq/Sodium Chloride 1,075 ml @ 75 mls/hr [id number] IV 11/10/16 16:30 11/13/16 23:07 (Maxipime Inj/NS Inj) 100 ml @ 200 mls/hr Q24H IV 11/11/16 02:00 11/13/16 01:59 (Imodium) 2 mg UNSCH PRN PO 11/11/16 13:30 11/11/16 22:00 (D50w (Vial) Inj) 50 ml UNSCH PRN IV 11/11/16 14:30 (Glucagon Inj) 1 mg UNSCH PRN OTHER 11/11/16 14:30 (Levemir Inj) 18 units HS SQ 11/11/16 21:00 11/14/16 01:00 (SandoSTATIN INJ) 100 mcg Q8HR SQ 11/12/16 17:15 11/13/16 05:15 (Cordarone) 400 mg BID PO 11/13/16 09:00 11/14/16 10:22 (Cardizem Cd) 120 mg DAILY PO 11/13/16 09:00 11/14/16 10:22 (Lomotil Tab) 2 tab Q6HR PRN PO 11/13/16 15:00 Assessment and Plan Assessment and Plan 66 y.o male admitted with ARF and symptoms of BPH with obstruction. Void trial in a few days once creatinine baselines. 11/14 66 y.o male admitted with ARF and symptoms of BPH with obstruction. Ricardo out and voiding Corona Mann DO Nov 14, 2016 11:05
--- NOTE | 2016-11-14 12:06 | PD.ONC.PN ---
Subjective Subjective Remarks Afebrile overnight. only 2 episodes of diarrhea overnight. 650cc UO Objective Data Date Time Temp Pulse Resp B/P Pulse Ox O2 Delivery O2 Flow Rate FiO2 11/14/16 08:41 97.8 68 20 122/62 98 11/14/16 04:27 67 11/14/16 04:00 97.7 66 17 111/53 94 11/14/16 00:05 58 11/14/16 00:00 96.5 68 18 141/74 97 11/13/16 20:06 67 11/13/16 20:00 96.6 61 17 144/61 97 11/13/16 17:00 98.1 63 16 128/65 100 11/13/16 12:00 97.7 69 18 119/71 100 Result Diagram: 11/13/1651711/13/1618 Administered Medications Medications (Trade) Dose Ordered Sig/Paula Route PRN Reason Start Time Stop Time Status Last Admin Dose Admin Sodium Chloride (NS Flush) 2 ml BID IV FLUSH 11/10/16 09:00 11/14/16 10:23 Heparin Sodium (Porcine) 5000 units 5,000 units Q12H SQ 11/10/16 04:00 11/13/16 18:22 Metronidazole (Flagyl 500 Mg Inj) 100 ml @ 100 mls/hr Q8H IV 11/10/16 04:00 11/14/16 10:24 Tamsulosin HCl (Flomax) 0.4 mg Q12HR PO 11/10/16 09:00 11/10/16 21:41 Morphine Sulfate (Morphine Inj) 2 mg Q3H PRN IV PUSH PAIN 7-10 11/10/16 08:45 11/10/16 10:22 Acetaminophen/ Hydrocodone Bitart ([place] 5-325 Mg) 1 tab Q4H PRN PO PAIN 3-6 11/10/16 08:45 11/10/16 18:32 Pantoprazole Sodium (Protonix) 20 mg DAILY PO 11/10/16 09:00 11/14/16 10:22 Valacyclovir HCl (Valtrex) 500 mg BID PO 11/10/16 09:00 11/14/16 10:22 Ondansetron HCl 8 mg 8 mg TID PO 11/10/16 10:00 11/11/16 09:23 Sodium Bicarbonate 75 meq/Sodium Chloride 1,075 ml @ 75 mls/hr [id number] IV 11/10/16 16:30 11/13/16 23:07 Cefepime HCl/ Sodium Chloride (Maxipime Inj/NS Inj) 100 ml @ 200 mls/hr Q24H IV 11/11/16 02:00 11/13/16 01:59 Loperamide HCl (Imodium) 2 mg UNSCH PRN PO DIARRHEA 11/11/16 13:30 11/11/16 22:00 Insulin Detemir (Levemir Inj) 18 units HS SQ 11/11/16 21:00 11/14/16 01:00 Octreotide Acetate (SandoSTATIN INJ) 100 mcg Q8HR SQ 11/12/16 17:15 11/13/16 05:15 Amiodarone HCl (Cordarone) 400 mg BID PO 11/13/16 09:00 11/14/16 10:22 Diltiazem HCl (Cardizem Cd) 120 mg DAILY PO 11/13/16 09:00 11/14/16 10:22 Objective Remarks GENERAL: Pleasant male upright in bed in nad. SKIN: Warm and dry. HEAD: Normocephalic. EYES: No injection or drainage. NECK: Supple, trachea midline. CARDIOVASCULAR: Regular rate and rhythm RESPIRATORY: Breath sounds equal bilaterally. No accessory muscle use. GASTROINTESTINAL: Abdomen nontender, mildly distended. EXTREMITIES: No cyanosis NEUROLOGICAL: awake and alert, normal speech. moving all extremities. Assessment/Plan Problem List: (1) Diarrhea Status: Acute Plan: 11/14: improved. only 2 bowel movements recorded in the last 24 hours. --severe diarrhea which is most likely due to the capecitabine chemotherapy. --on hydration. --PRN Imodium (2) KEMAR (acute kidney injury) Status: Acute Plan: --improving --likely d/t dehydration --nephrology following. (3) Colon cancer Status: Acute Plan: --diagnosed with colon cancer in 2014 in [facility]. underwent surgery. Right after the surgery he was found to have lung metastasis. -- treated initially with FOLFOX. His tumor was KRAS wild type. subsequently treated with Vectibix and maybe FOLFIRI chemotherapy, he is not sure. --subsequently moved to [place] has been going to [facility] seeing Dr. Diggs. --had been on capecitabine 2g BID and Vectibix for the last several months. repeat scan showed that he had a good response. capecitabine was tapered down to 2 tablets twice a day. --recently the restaging scan shows that the lung nodules were getting larger and he was advised to increase the capecitabine to 3 tablets twice a day. finished a 2 weeks course just a week ago. --is due for another cycle of capecitabine, next week Sunday and Vectibix on Sunday. Assessment 66y/o with h/o colon cancer, admitted with severe diarrhea h/o Hypertension, diabetes mellitus, colon cancer diagnosed in 2014 with lung metastasis. Attending Statement Diarrhea has improved Start making your urine ARF has almost resolved Ready to be discharged The exam, history, and the medical decision-making described in the above note were completed with the assistance of the mid-level provider. I reviewed and agree with the findings presented. I attest that I had a [id number] encounter with the patient on the same day, and personally performed and documented my assessment and findings in the medical record. Problem Qualifiers (1) Diarrhea: Qualified Code: R19.7 - Diarrhea, unspecified type (2) Colon cancer: Qualified Code: C18.9 - Malignant neoplasm of colon, unspecified part of colon Yamileth Garcia Nov 14, 2016 12:06 Archie Arnold MD Nov 15, 2016 00:49
[2016-11-14 13:39] LABS: AUTOMATED NEUTROPHIL # 4.7 TH/MM3 (1.8-7.7); BASOPHIL % 0.5 % (0.0-2.0); EOSINOPHIL # 0.5 TH/MM3 (0-0.4); HEMATOCRIT 30.6 % (39.0-51.0); HEMO FLAGS DIFF FINAL; LYMPH % 21.4 % (9.0-44.0); LYMPHOCYTE # 1.8 TH/MM3 (1.0-4.8); MEAN CELL VOLUME 100.6 FL (80.0-100.0); MEAN CORPUSCULAR HEMOGLOBIN 34.5 PG (27.0-34.0); MEAN CORPUSCULAR HGB CONC 34.3 % (32.0-36.0); MONO % 15.7 % (0.0-8.0); NEUT % 56.4 % (16.0-70.0); PLATELET COUNT 172 TH/MM3 (150-450); RED BLOOD COUNT 3.04 MIL/MM3 (4.50-5.90); WHITE BLOOD COUNT 8.3 TH/MM3 (4.0-11.0)
[2016-11-14 14:25] LABS: BICARBONATE 23.1 MEQ/L (21.0-32.0); POTASSIUM 3.5 MEQ/L (3.5-5.1)
--- NOTE | 2016-11-14 17:52 | HHI.PR ---
Subjective Subjective Remarks sitting up in bed eating supper, mild abd. cramping, very small amts of diarrhea afebrile (Pamela Calero) Review of Systems Constitutional Constitutional Remarks 10 point ROS done, positives noted (Pamela Calero) Pulmonary Respiratory: Shortness of Breath (occ.) (Pamela Calero) GI/Abdomen GI/Abdominal Exam: Diarrhea GI/Abdomen Remarks abd cramping Less diarrhea today Eating 100% of diet Afebrile (Pamela Calero) Integumentary Skin Remarks abd binder, comfort (Pamela Calero) Psychiatric Psychiatric: Normal Mood (Pamela Calero) Vitals/Results Intake & Output 11/13/16 11/13/16 11/14/16 15:00 23:00 07:00 Intake Total 420 ml Output Total 650 ml Balance -230 ml Intake Oral 420 ml Output Urine Total 650 ml # Voids 3 # Bowel Movements 2 Vital Signs Vital Signs Date Time Temp Pulse Resp B/P Pulse Ox O2 Delivery O2 Flow Rate FiO2 11/14/16 16:22 97.6 61 20 127/60 99 11/14/16 12:34 96.9 69 20 135/60 99 11/14/16 08:41 97.8 68 20 122/62 98 11/14/16 04:27 67 11/14/16 04:00 97.7 66 17 111/53 94 11/14/16 00:05 58 11/14/16 00:00 96.5 68 18 141/74 97 11/13/16 20:06 67 11/13/16 20:00 96.6 61 17 144/61 97 (Pamela Calero) CBC/BMP: 11/14/16 1234 11/14/16 1234 Lab Results Laboratory Tests Test 11/14/16 12:34 White Blood Count 8.3 TH/MM3 Red Blood Count 3.04 MIL/MM3 Hemoglobin 10.5 GM/DL Hematocrit 30.6 % Mean Corpuscular Volume 100.6 FL Mean Corpuscular Hemoglobin 34.5 PG Mean Corpuscular Hemoglobin 34.3 % Concent Red Cell Distribution Width 16.0 % Platelet Count 172 TH/MM3 Mean Platelet Volume 9.3 FL Neutrophils (%) (Auto) 56.4 % Lymphocytes (%) (Auto) 21.4 % Monocytes (%) (Auto) 15.7 % Eosinophils (%) (Auto) 6.0 % Basophils (%) (Auto) 0.5 % Neutrophils # (Auto) 4.7 TH/MM3 Lymphocytes # (Auto) 1.8 TH/MM3 Monocytes # (Auto) 1.3 TH/MM3 Eosinophils # (Auto) 0.5 TH/MM3 Basophils # (Auto) 0.0 TH/MM3 CBC Comment DIFF FINAL Differential Comment Sodium Level 138 MEQ/L Potassium Level 3.5 MEQ/L Chloride Level 106 MEQ/L Carbon Dioxide Level 23.1 MEQ/L Anion Gap 9 MEQ/L Blood Urea Nitrogen 23 MG/DL Creatinine 1.23 MG/DL Estimat Glomerular Filtration 59 ML/MIN Rate Random Glucose 224 MG/DL Calcium Level 7.6 MG/DL Phosphorus Level 0.8 MG/DL Albumin 2.6 GM/DL Imaging Remarks Last Impressions Renal Ultrasound 11/10/16 0000 Signed Impressions: Service Date/Time: Thursday, November 10, 2016 08:32 - CONCLUSION: No evidence of hydronephrosis. Ben Mccloud MD Chest X-Ray 11/09/16 0000 Signed Impressions: Service Date/Time: October 23:48 - CONCLUSION: 1. No acute cardiopulmonary disease. Scott Chung MD (Pamela Calero M. NEEDLE GRINDER) Physical Exam General General Appearance: Well Developed, No Acute Distress, Comfortable, Malnourished (Papillion,Susan M. NEEDLE GRINDER) Eyes Eye Exam: Pupils Equal, Pupils Reactive (Papillion,Pamela M. NEEDLE GRINDER) Ears & Nose Ears & Nose Exam: Nasal Mucosa [place] (AbdiasEriPamela M. NEEDLE GRINDER) Throat Throat Exam: Oral Mucosa [place] & Moist (Papillion,Pameal M. NEEDLE GRINDER) Neck Neck Exam: Neck Supple, Trachea Midline (Papillion,Pamela M. NEEDLE GRINDER) Pulmonary Resp Exam: Clear Bilaterally, Breath Sounds Equal, No Distress (Papillion,Pamela M. NEEDLE GRINDER) Cardiology CV Exam: Regular, Normal Sinus Rhythm, Good Perfusion (PapillionPamela M. NEEDLE GRINDER) Gastrointestinal/Abdomen GI Exam: Soft, Non-Tender, Bowel Sounds Present, Positive Bowel Movement, Non- Distended GI Remarks Minor cramping and diarrhea improved gradual (AbdiasPamela M. NEEDLE GRINDER) Musculoskeletal MS Exam: Joints Intact, Normal Tone (Abdias,Susan M. NEEDLE GRINDER) Integumentary Skin Exam: Clear, Warm, Dry, Intact (PapillionPamela M. NEEDLE GRINDER) Extremeties Extremities Exam: No Edema, Pedal Pulses Palpable (Abdias,Susan M. NEEDLE GRINDER) Neurologic Neuro Exam: Alert, Awake, Oriented, Speech Clear, Moving All Extremities, No Focal Deficits (Abdias,Susan M. NEEDLE GRINDER) Psychiatric Psych Exam: Appropriate Responses (Papillion,Susan M. NEEDLE GRINDER) VTE Prophylaxis VTE Prophylaxis Device: SCDs VTE Prophylaxis Meds: Heparin (PapillionPamela M. NEEDLE GRINDER) PUD Prophylasis PUD Prophylaxis: Protonix (PapillionEriPamela M. NEEDLE GRINDER) Assessment/Plan Problem List: (1) Fever (2) Hyponatremia (3) Hypomagnesemia (4) Diarrhea (5) Colon cancer (6) KEMAR (acute kidney injury) (7) Atrial fibrillation with rapid ventricular response (8) Urinary retention (9) Thrombocytopenia Assessment/Plan (1) Fever (2) Hyponatremia (3) Hypomagnesemia (4) Diarrhea (5) Colon cancer (6) KEMAR (acute kidney injury) (7) Atrial fibrillation with rapid ventricular response (8) Urinary retention (9) Thrombocytopenia Assessment/Plan Signs reviewed, normal trends Labs reviewed B UN improved, encourage patient to continue drinking by mouth fluids Anemia controlled 10.5, CBC in the morning -oncology following, appreciate input, -Continue with Imodium prn Patient still on IV antibiotics, will DC this p.m. and monitor symptoms of diarrhea Will return to his previous outpatient PCP and cancer physician KEMAR, dehydration Encourage by mouth fluids, B UN improving Urinary retention, Ricardo DC'd patient is voiding without difficulty -BP improving 120s -appreciate nephrology input Labs have been monitored, trending to normal ranges gradual Afib RVR, new onset. Denies any prior history -Appreciate cardiology input, amiodarone decreased to 200 mg daily -2D echo 50-55% diastolic dysfunction. Currently sinus rhythm, monitored on telemetry Type 2 diabetes, blood glucose with sliding scale and Accu-Cheks Continue medium dose insulin sliding scale, continue with Accu-Cheks before meals and at bedtime -Continue with Levemir 18 units subcutaneous daily Thrombocytopenia, received chemotherapy 2 weeks ago Monitor labs, no evidence of bleeding noted SCDs for DVT prophylaxis Medication management adjustments, will monitor symptoms over the next 24 hours , planning for possible discharge tomorrow D/W RN D/W Dr. Cuevas, seen on her behalf D/W pt and (Pamela Calero) Assessment/Plan patient seen and examined agree with above assessment and plan cleared by Hematology and nephrology for discharge still awaiting cardiology clearance d/c antibiotics and monitor overnight off antibiotics anticipate discharge to home soon discussed with patient no family at bedside discussed with Pamela GAMINO labs in am (Lucita Cuevas MD) Problem Qualifiers (1) Fever: Qualified Code: R50.9 - Fever, unspecified fever cause (2) Diarrhea: Qualified Code: R19.7 - Diarrhea, unspecified type (3) Colon cancer: Qualified Code: C18.9 - Malignant neoplasm of colon, unspecified part of colon Pamela Calero Nov 14, 2016 17:52 Lucita Cuevas MD Nov 14, 2016 19:15
[2016-11-14] MEDS: SODIUM BICARBONATE 8.4% INJ 75 MEQ in SODIUM CHLOR 0.45% 1000 ML INJ 1,000 ML IV SCH (20:07)
[2016-11-14] MEDS: TAMSULOSIN HCL 0.4 MG CAP PO SCH (21:42)
[2016-11-15] VITALS (7 sets, daily range): BP systolic 132–164; BP diastolic 60–71; PULSE 53–70; RESP 12–18; TEMP 97–98.3; O2SAT 98–99
[2016-11-15] MEDS: SODIUM BICARBONATE 8.4% INJ 75 MEQ in SODIUM CHLOR 0.45% 1000 ML INJ 1,000 ML IV SCH (03:47)
[2016-11-15] MEDS: OCTREOTIDE INJ 100 MCG/ML VIAL SQ SCH ×2 (05:13→14:59)
[2016-11-15] MEDS: HEPARIN SODIUM - SQ 10,000 UNITS/ML VIAL SQ SCH (05:13)
[2016-11-15 05:45] LABS: AUTOMATED NEUTROPHIL # 3.6 TH/MM3 (1.8-7.7); BASOPHIL % 0.6 % (0.0-2.0); EOSINOPHIL # 0.8 TH/MM3 (0-0.4); EOSINOPHIL % 10.3 % (0.0-4.0); HEMATOCRIT 27.9 % (39.0-51.0); HEMO FLAGS DIFF FINAL; LYMPH % 28.2 % (9.0-44.0); LYMPHOCYTE # 2.2 TH/MM3 (1.0-4.8); MEAN CELL VOLUME 101.3 FL (80.0-100.0); MEAN CORPUSCULAR HEMOGLOBIN 34.4 PG (27.0-34.0); MONO % 15.1 % (0.0-8.0); NEUT % 45.8 % (16.0-70.0); PLATELET COUNT 165 TH/MM3 (150-450); RED BLOOD COUNT 2.76 MIL/MM3 (4.50-5.90); WHITE BLOOD COUNT 7.8 TH/MM3 (4.0-11.0)
[2016-11-15 06:05] LABS: BICARBONATE 24.9 MEQ/L (21.0-32.0); POTASSIUM 3.3 MEQ/L (3.5-5.1)
[2016-11-15] MEDS: INSULIN ASPART SUPPLEMENTAL SCALE SQ SCH ×2 (06:26→11:52)
[2016-11-15 06:30] LABS: CALCIUM-PROTEIN CORRECTED 8.5 MG/DL (8.5-10.1)
--- NOTE | 2016-11-15 06:49 | PD.CARD.PN ---
Subjective Subjective Remarks Pt without complaints Objective Medications Current Medications Medications (Trade) Dose Ordered Sig/Paula Route Start Time Stop Time Status Last Admin (NS Flush) 2 ml UNSCH PRN IV FLUSH 11/10/16 02:45 (NS Flush) 2 ml BID IV FLUSH 11/10/16 09:00 11/14/16 21:43 (Tylenol) 650 mg Q4H PRN PO 11/10/16 02:45 (Zofran Inj) 4 mg Q6H PRN IVP 11/10/16 02:45 (Heparin Inj) 5,000 units Q12H SQ 11/10/16 04:00 11/15/16 05:13 (Narcan Inj) 0.4 mg UNSCH PRN IV 11/10/16 02:45 (Flomax) 0.4 mg Q12HR PO 11/10/16 09:00 11/14/16 21:42 (Morphine Inj) 2 mg Q3H PRN IV PUSH 11/10/16 08:45 11/10/16 10:22 ([place] 5-325 Mg) 1 tab Q4H PRN PO 11/10/16 08:45 11/10/16 18:32 (Protonix) 20 mg DAILY PO 11/10/16 09:00 11/14/16 10:22 (Compazine) 10 mg Q6H PRN PO 11/10/16 08:45 (Valtrex) 500 mg BID PO 11/10/16 09:00 11/14/16 21:42 Ondansetron HCl 8 mg 8 mg TID PO 11/10/16 10:00 11/11/16 09:23 (Sodium Bicarbonate 8.4% Inj//2 NS 1000 ml Inj) 1,075 ml @ 75 mls/hr [id number] IV 11/10/16 16:30 11/14/16 20:07 (Imodium) 2 mg UNSCH PRN PO 11/11/16 13:30 11/11/16 22:00 (D50w (Vial) Inj) 50 ml UNSCH PRN IV 11/11/16 14:30 (Glucagon Inj) 1 mg UNSCH PRN OTHER 11/11/16 14:30 (Levemir Inj) 18 units HS SQ 11/11/16 21:00 11/14/16 21:51 (SandoSTATIN INJ) 100 mcg Q8HR SQ 11/12/16 17:15 11/15/16 05:13 (Cardizem Cd) 120 mg DAILY PO 11/13/16 09:00 11/14/16 10:22 (Lomotil Tab) 2 tab Q6HR PRN PO 11/13/16 15:00 (Cordarone) 200 mg DAILY PO 11/15/16 09:00 Vital Signs / I&O Vital Signs Date Time Temp Pulse Resp B/P Pulse Ox O2 Delivery O2 Flow Rate FiO2 11/15/16 04:00 97.0 70 18 132/60 98 11/15/16 00:02 56 11/15/16 00:00 97.1 60 18 147/69 98 11/14/16 20:02 58 11/14/16 20:00 97.1 64 18 129/61 99 11/14/16 16:22 97.6 61 20 127/60 99 11/14/16 16:00 55 11/14/16 12:34 96.9 69 20 135/60 99 11/14/16 12:00 68 11/14/16 08:41 97.8 68 20 122/62 98 11/14/16 08:00 71 I/O 11/14/16 11/14/16 11/14/16 11/15/16 11/15/16 11/15/16 07:00 15:00 23:00 07:00 15:00 23:00 Intake Total 1462 ml 1605 ml Balance 1462 ml 1605 ml Intake Oral 720 ml 480 ml IV Total 742 ml 1125 ml # Voids 5 4 # Bowel Movements 5 Physical Exam GENERAL: Well developed, well nourished. No acute distress. HEENT: Jugular venous pressure is normal. CHEST: Lungs clear to auscultation bilaterally. Unlabored respiratory effort. CARDIAC: Regular rate and rhythm without S3, S4, or murmur. ABDOMEN: Soft, EXTREMITIES: No clubbing, cyanosis, or edema. Laboratory Laboratory Tests Test 11/14/16 11/15/16 12:34 05:25 White Blood Count 8.3 TH/MM3 7.8 TH/MM3 Red Blood Count 3.04 MIL/MM3 2.76 MIL/MM3 Hemoglobin 10.5 GM/DL 9.5 GM/DL Hematocrit 30.6 % 27.9 % Mean Corpuscular Volume 100.6 FL 101.3 FL Mean Corpuscular Hemoglobin 34.5 PG 34.4 PG Mean Corpuscular Hemoglobin 34.3 % 34.0 % Concent Red Cell Distribution Width 16.0 % 16.0 % Platelet Count 172 TH/MM3 165 TH/MM3 Mean Platelet Volume 9.3 FL 9.0 FL Neutrophils (%) (Auto) 56.4 % 45.8 % Lymphocytes (%) (Auto) 21.4 % 28.2 % Monocytes (%) (Auto) 15.7 % 15.1 % Eosinophils (%) (Auto) 6.0 % 10.3 % Basophils (%) (Auto) 0.5 % 0.6 % Neutrophils # (Auto) 4.7 TH/MM3 3.6 TH/MM3 Lymphocytes # (Auto) 1.8 TH/MM3 2.2 TH/MM3 Monocytes # (Auto) 1.3 TH/MM3 1.2 TH/MM3 Eosinophils # (Auto) 0.5 TH/MM3 0.8 TH/MM3 Basophils # (Auto) 0.0 TH/MM3 0.0 TH/MM3 CBC Comment DIFF FINAL DIFF FINAL Differential Comment Sodium Level 138 MEQ/L 142 MEQ/L Potassium Level 3.5 MEQ/L 3.3 MEQ/L Chloride Level 106 MEQ/L 109 MEQ/L Carbon Dioxide Level 23.1 MEQ/L 24.9 MEQ/L Anion Gap 9 MEQ/L 8 MEQ/L Blood Urea Nitrogen 23 MG/DL 16 MG/DL Creatinine 1.23 MG/DL 1.07 MG/DL Estimat Glomerular Filtration 59 ML/MIN 69 ML/MIN Rate Random Glucose 224 MG/DL 96 MG/DL Calcium Level 7.6 MG/DL 7.4 MG/DL Phosphorus Level 0.8 MG/DL Albumin 2.6 GM/DL Protein Corrected Calcium 8.5 MG/DL Total Protein 5.2 GM/DL Carcinoembryonic Antigen 3.7 NG/ML Assessment and Plan Assessment and Plan 1. Atrial fibrillation -NSR x 48 hours; continue present meds anticoagulation: [id number] score of 3 with a point for hypertension, 66 and diabetes. -CV event rate is about 3% to 5% over the course of a year. -anticoagulation remains controversial risk/bene with anemia, colon cancer with mets HTN- Colon cancer - this is being managed by hematology/oncology. Renal insufficiency with hyponatremia - Dispo- ok for d/c Key Awad MD Nov 15, 2016 06:49
[2016-11-15] MEDS ORDERED: POTASSIUM CHLORIDE 20 MEQ CONTROLLED RELEASE TAB PO ONE (08:45)
[2016-11-15] MEDS: ONDANSETRON ODT 4 MG TAB PO SCH ×2 (09:00→11:34)
[2016-11-15] MEDS ORDERED: AMIODARONE 200 MG TAB PO SCH (09:00)
--- NOTE | 2016-11-15 09:12 | HHI.NPPN ---
Subjective Renal Failure: Acute Interval History Renal function has improved. Diarrhea is also much better. Pending discharge. ( Julienne Willson) Review of Systems General Constitutional: Fatigue (Julienne Willson) Gastrointestinal Gastrointestinal: Abdominal Pain GI Remarks some gas (Julienne Willson) Objective Data Data 11/14/16 11/15/16 19:00 07:00 Intake Total 1462 ml 1605 ml Balance 1462 ml 1605 ml Intake Oral 720 ml 480 ml IV Total 742 ml 1125 ml # Voids 5 4 # Bowel Movements 5 Vital Signs Date Time Temp Pulse Resp B/P Pulse Ox O2 Delivery O2 Flow Rate FiO2 11/15/16 04:00 97.0 70 18 132/60 98 11/15/16 00:02 56 11/15/16 00:00 97.1 60 18 147/69 98 11/14/16 20:02 58 11/14/16 20:00 97.1 64 18 129/61 99 11/14/16 16:22 97.6 61 20 127/60 99 11/14/16 16:00 55 11/14/16 12:34 96.9 69 20 135/60 99 11/14/16 12:00 68 (Julienne Willson) -: 11/15/16 0525 11/15/16 0525 Drip Comment bicarb (Julienne Willson) Physical Exam General Appearance: Well Developed, No Acute Distress, Comfortable, Malnourished ( Julienne Willson) Eyes Eye Exam: Pupils Equal, Pupils Reactive (Julienne Willson) Ears & Nose Ears & Nose Exam: Nasal Mucosa [place] (Julienne Willson) Throat Throat Exam: Oral Mucosa [place] & Moist (Julienne Willson) Neck Neck Exam: Neck Supple, Trachea Midline (Julienne Willson) Pulmonary Resp Exam: Clear Bilaterally, Breath Sounds Equal, No Distress (Julienne Willson) Cardiology CV Exam: Regular, Normal Sinus Rhythm, Good Perfusion (Julienne Willson) Gastrointestinal/Abdomen GI Exam: Soft, Non-Tender, Bowel Sounds Present, Positive Bowel Movement, Non- Distended (Julienne Willson) Musculoskeletal MS Exam: Joints Intact, Normal Tone (Julienne Willson) Integumentary Skin Exam: Clear, Warm, Dry, Intact (Julienne Willson) Extremeties Extremities Exam: No Edema, Pedal Pulses Palpable (Julienne Willson) Neurologic Neuro Exam: Alert, Awake, Oriented, Speech Clear, Moving All Extremities, No Focal Deficits (Julienne Willson) Psychiatric Psych Exam: Appropriate Responses (Julienne Willson) VTE Prophylaxis Device: SCDs (Julienne Willson) PUD Prophylasis PUD Prophylaxis: Protonix (Julienne Willson) Assessment/Plan Discussed Condition With: Patient Assessment Summary: KEMAR/Acute Renal Failure Electrolyte Assessment: Hypokalemia Problem List: (1) KEMAR (acute kidney injury) Plan: In a patient with no baseline labs for analysis KEMAR: suspected prerenal azotemia due to dehydration renal function improved non oliguric stop IVF replace potassium okay to resume home MARKY avoid NSAIDs (2) Fever Plan: suspected UTI cefepime was stopped (3) Hyponatremia Plan: hypovolemic hyponatremia, corrected with IVF, continue monitor labs (4) Hypomagnesemia Plan: corrected, though to be due to chemo agents (5) Colon cancer Plan: oncology following outpatient chemotherapy to be postponed until next week. Plan he is stable for discharge, we will sign off at this time (Julienne Willson) Plan patient was seen and examined. Agree with above assessment and plan. (Abbe Parker MD) Problem Qualifiers (1) Fever: Qualified Code: R50.9 - Fever, unspecified fever cause (2) Colon cancer: Qualified Code: C18.9 - Malignant neoplasm of colon, unspecified part of colon Julienne Willson Nov 15, 2016 09:12 Abbe Parker MD Nov 15, 2016 09:54
[2016-11-15] MEDS: PANTOPRAZOLE SOD 20 MG DELAYED RELEASE TAB PO SCH (09:42)
[2016-11-15] MEDS: TAMSULOSIN HCL 0.4 MG CAP PO SCH (09:42)
[2016-11-15] MEDS: DILTIAZEM-CD 120 MG CAP ER PO SCH (09:42)
[2016-11-15] MEDS: valACYclovir HCL 500 MG TAB PO SCH (09:42)
[2016-11-15] MEDS: SODIUM CHLORIDE 0.9% FLUSH 10 ML FLUSH IV FLUSH SCH (09:42)
--- NOTE | 2016-11-15 13:42 | PD.ONC.PN ---
Subjective Subjective Remarks Afebrile overnight. Patient feeling good. eager to go home. denies bleeding. Objective Data Date Time Temp Pulse Resp B/P Pulse Ox O2 Delivery O2 Flow Rate FiO2 11/15/16 08:00 98.0 64 14 141/60 98 11/15/16 04:00 97.0 70 18 132/60 98 11/15/16 00:02 56 11/15/16 00:00 97.1 60 18 147/69 98 11/14/16 20:02 58 11/14/16 20:00 97.1 64 18 129/61 99 11/14/16 16:22 97.6 61 20 127/60 99 11/14/16 16:00 55 11/15/16 11/15/16 11/15/16 07:00 15:00 23:00 Intake Total 1605 ml Balance 1605 ml Result Diagram: 11/15/16 0525 11/15/16 0525 Laboratory Results Laboratory Tests Test 11/15/16 05:25 White Blood Count 7.8 TH/MM3 Red Blood Count 2.76 MIL/MM3 Hemoglobin 9.5 GM/DL Hematocrit 27.9 % Mean Corpuscular Volume 101.3 FL Mean Corpuscular Hemoglobin 34.4 PG Mean Corpuscular Hemoglobin 34.0 % Concent Red Cell Distribution Width 16.0 % Platelet Count 165 TH/MM3 Mean Platelet Volume 9.0 FL Neutrophils (%) (Auto) 45.8 % Lymphocytes (%) (Auto) 28.2 % Monocytes (%) (Auto) 15.1 % Eosinophils (%) (Auto) 10.3 % Basophils (%) (Auto) 0.6 % Neutrophils # (Auto) 3.6 TH/MM3 Lymphocytes # (Auto) 2.2 TH/MM3 Monocytes # (Auto) 1.2 TH/MM3 Eosinophils # (Auto) 0.8 TH/MM3 Basophils # (Auto) 0.0 TH/MM3 CBC Comment DIFF FINAL Differential Comment Sodium Level 142 MEQ/L Potassium Level 3.3 MEQ/L Chloride Level 109 MEQ/L Carbon Dioxide Level 24.9 MEQ/L Anion Gap 8 MEQ/L Blood Urea Nitrogen 16 MG/DL Creatinine 1.07 MG/DL Estimat Glomerular Filtration 69 ML/MIN Rate Random Glucose 96 MG/DL Calcium Level 7.4 MG/DL Protein Corrected Calcium 8.5 MG/DL Total Protein 5.2 GM/DL Carcinoembryonic Antigen 3.7 NG/ML Administered Medications Medications (Trade) Dose Ordered Sig/Paula Route PRN Reason Start Time Stop Time Status Last Admin Dose Admin Sodium Chloride (NS Flush) 2 ml BID IV FLUSH 11/10/16 09:00 11/15/16 09:42 Heparin Sodium (Porcine) (Heparin Inj) 5,000 units Q12H SQ 11/10/16 04:00 11/15/16 05:13 Tamsulosin HCl (Flomax) 0.4 mg Q12HR PO 11/10/16 09:00 11/15/16 09:42 Morphine Sulfate (Morphine Inj) 2 mg Q3H PRN IV PUSH PAIN 7-10 11/10/16 08:45 11/10/16 10:22 Acetaminophen/ Hydrocodone Bitart ([place] 5-325 Mg) 1 tab Q4H PRN PO PAIN 3-6 11/10/16 08:45 11/10/16 18:32 Pantoprazole Sodium (Protonix) 20 mg DAILY PO 11/10/16 09:00 11/15/16 09:42 Valacyclovir HCl (Valtrex) 500 mg BID PO 11/10/16 09:00 11/15/16 09:42 Ondansetron HCl (Zofran Odt) 8 mg TID PO 11/10/16 10:00 11/11/16 09:23 Loperamide HCl (Imodium) 2 mg UNSCH PRN PO DIARRHEA 11/11/16 13:30 11/11/16 22:00 Insulin Detemir (Levemir Inj) 18 units HS SQ 11/11/16 21:00 11/14/16 21:51 Octreotide Acetate (SandoSTATIN INJ) 100 mcg Q8HR SQ 11/12/16 17:15 11/15/16 05:13 Diltiazem HCl (Cardizem Cd) 120 mg DAILY PO 11/13/16 09:00 11/15/16 09:42 Amiodarone HCl (Cordarone) 200 mg DAILY PO 11/15/16 09:00 11/15/16 09:43 Objective Remarks GENERAL: Pleasant male sitting up in bed in nad. SKIN: Warm and dry. HEAD: Normocephalic. EYES: No injection or drainage. NECK: Supple, trachea midline. CARDIOVASCULAR: Regular rate and rhythm RESPIRATORY: Breath sounds equal bilaterally. No accessory muscle use. GASTROINTESTINAL: Abdomen nontender, mildly distended. EXTREMITIES: No cyanosis NEUROLOGICAL: aox3. normal speech. moving all extremities. Assessment/Plan Problem List: (1) Diarrhea Status: Acute Plan: 11/15: improved. patient clear for discharge. advised to have his CBC checked this Sunday. states she will call the [facility] and have them set it up. they plan to follow up with [facility] next week. --severe diarrhea which is most likely due to the capecitabine chemotherapy. --on hydration. --PRN Imodium (2) KEMAR (acute kidney injury) Status: Acute Plan: --improving --likely d/t dehydration --nephrology following. (3) Colon cancer Status: Acute Plan: --diagnosed with colon cancer in 2014 in [facility]. underwent surgery. Right after the surgery he was found to have lung metastasis. -- treated initially with FOLFOX. His tumor was KRAS wild type. subsequently treated with Vectibix and maybe FOLFIRI chemotherapy, he is not sure. --subsequently moved to [place] has been going to [facility] seeing Dr. Diggs. --had been on capecitabine 2g BID and Vectibix for the last several months. repeat scan showed that he had a good response. capecitabine was tapered down to 2 tablets twice a day. --recently the restaging scan shows that the lung nodules were getting larger and he was advised to increase the capecitabine to 3 tablets twice a day. finished a 2 weeks course just a week ago. --is due for another cycle of capecitabine, next week Sunday and Vectibix on Sunday. Assessment 66y/o with h/o colon cancer, admitted with severe diarrhea h/o Hypertension, diabetes mellitus, colon cancer diagnosed in 2014 with lung metastasis. Attending Statement No more diarrhea Drinking and eating good ARF has resolved Okay to discharge home today Patient will be followed up at [facility] next week Will sign off Available PRN The exam, history, and the medical decision-making described in the above note were completed with the assistance of the mid-level provider. I reviewed and agree with the findings presented. I attest that I had a [id number] encounter with the patient on the same day, and personally performed and documented my assessment and findings in the medical record. Problem Qualifiers (1) Diarrhea: Qualified Code: R19.7 - Diarrhea, unspecified type (2) Colon cancer: Qualified Code: C18.9 - Malignant neoplasm of colon, unspecified part of colon Yamileth Garcia Nov 15, 2016 13:42 Archie Arnold MD Nov 16, 2016 00:21
[2016-11-15] MEDS ORDERED: AMIO200T PO (15:03)
[2016-11-15] MEDS ORDERED: TAMS5CAP PO (15:03)
[2016-11-15] MEDS ORDERED: LANTINJ SQ (15:03)
[2016-11-15] MEDS ORDERED: CARD120C4 PO (15:03)
--- NOTE | 2016-11-15 15:07 | HHI.PR ---
Subjective Subjective Remarks resting in bed and up in rm afebrile eating 100% food ADA in (Pamela Calero) Review of Systems Constitutional Constitutional Remarks 10 point ROS done, positives noted (Pamela Calero) Pulmonary Respiratory: Shortness of Breath (improved) (Pamela Calero) GI/Abdomen GI/Abdominal Exam: Diarrhea GI/Abdomen Remarks abd cramping Less diarrhea today Eating 100% of diet Afebrile (Pamela Calero) Integumentary Skin Remarks abd binder, comfort (Pamela Calero) Psychiatric Psychiatric: Normal Mood (Pamela Calero) Vitals/Results Intake & Output 11/14/16 11/14/16 11/15/16 14:59 22:59 06:59 Intake Total 1462 ml 1605 ml Balance 1462 ml 1605 ml Intake Oral 720 ml 480 ml IV Total 742 ml 1125 ml # Voids 5 4 # Bowel Movements 5 Vital Signs Vital Signs Date Time Temp Pulse Resp B/P Pulse Ox O2 Delivery O2 Flow Rate FiO2 11/15/16 12:11 53 11/15/16 12:00 98.3 55 12 164/71 99 11/15/16 08:07 60 11/15/16 08:00 98.0 64 14 141/60 98 11/15/16 04:00 97.0 70 18 132/60 98 11/15/16 00:02 56 11/15/16 00:00 97.1 60 18 147/69 98 11/14/16 20:02 58 11/14/16 20:00 97.1 64 18 129/61 99 11/14/16 16:22 97.6 61 20 127/60 99 11/14/16 16:00 55 (Pamela Calero) CBC/BMP: 11/15/16 0525 11/15/16 0525 Lab Results Laboratory Tests Test 11/15/16 05:25 White Blood Count 7.8 TH/MM3 Red Blood Count 2.76 MIL/MM3 Hemoglobin 9.5 GM/DL Hematocrit 27.9 % Mean Corpuscular Volume 101.3 FL Mean Corpuscular Hemoglobin 34.4 PG Mean Corpuscular Hemoglobin 34.0 % Concent Red Cell Distribution Width 16.0 % Platelet Count 165 TH/MM3 Mean Platelet Volume 9.0 FL Neutrophils (%) (Auto) 45.8 % Lymphocytes (%) (Auto) 28.2 % Monocytes (%) (Auto) 15.1 % Eosinophils (%) (Auto) 10.3 % Basophils (%) (Auto) 0.6 % Neutrophils # (Auto) 3.6 TH/MM3 Lymphocytes # (Auto) 2.2 TH/MM3 Monocytes # (Auto) 1.2 TH/MM3 Eosinophils # (Auto) 0.8 TH/MM3 Basophils # (Auto) 0.0 TH/MM3 CBC Comment DIFF FINAL Differential Comment Sodium Level 142 MEQ/L Potassium Level 3.3 MEQ/L Chloride Level 109 MEQ/L Carbon Dioxide Level 24.9 MEQ/L Anion Gap 8 MEQ/L Blood Urea Nitrogen 16 MG/DL Creatinine 1.07 MG/DL Estimat Glomerular Filtration 69 ML/MIN Rate Random Glucose 96 MG/DL Calcium Level 7.4 MG/DL Protein Corrected Calcium 8.5 MG/DL Total Protein 5.2 GM/DL Carcinoembryonic Antigen 3.7 NG/ML (Pamela Calero M. [employer]) Physical Exam General General Appearance: Well Developed, No Acute Distress, Comfortable, Malnourished (Pamela Calero M. [employer]) Eyes Eye Exam: Pupils Equal, Pupils Reactive (Pamela Calero M. [employer]) Ears & Nose Ears & Nose Exam: Nasal Mucosa [place] (Pamela Calero M. [employer]) Throat Throat Exam: Oral Mucosa [place] & Moist (Pamela Calero M. [employer]) Neck Neck Exam: Neck Supple, Trachea Midline (Pamela Calero M. [employer]) Pulmonary Resp Exam: Clear Bilaterally, Breath Sounds Equal, No Distress (Pamela Calero M. [employer]) Cardiology CV Exam: Regular, Normal Sinus Rhythm, Good Perfusion (Pamela Calero M. [employer]) Gastrointestinal/Abdomen GI Exam: Soft, Non-Tender, Bowel Sounds Present, Positive Bowel Movement, Non- Distended GI Remarks Minor cramping and diarrhea improved gradual (Pamela Calero M. [employer]) Musculoskeletal MS Exam: Joints Intact, Normal Tone (Pamela Calero. G[employer]) Integumentary Skin Exam: Clear, Warm, Dry, Intact ([place]di[place]Pamela M. GUS[employer]PER) Extremeties Extremities Exam: No Edema, Pedal Pulses Palpable ([place] M. [employer] RIPPER) Neurologic Neuro Exam: Alert, Awake, Oriented, Speech Clear, Moving All Extremities, No Focal Deficits (AbdiasPamela M. G[employer] RIPPER) Psychiatric Psych Exam: Appropriate Responses (AbdiasPamela M. [employer]) VTE Prophylaxis VTE Prophylaxis Device: SCDs VTE Prophylaxis Meds: Heparin (AbdiasPamela M. GUS[employer] RIPPER) PUD Prophylasis PUD Prophylaxis: Protonix ([place] M. GUSSET RIPPER) Assessment/Plan Problem List: (1) Fever (2) Hyponatremia (3) Hypomagnesemia (4) Diarrhea (5) Colon cancer (6) KEMAR (acute kidney injury) (7) Atrial fibrillation with rapid ventricular response (8) Urinary retention (9) Thrombocytopenia Assessment/Plan Assessment/Plan Signs reviewed, normal trends, afebrile -oncology following, appreciate input, -Continue with Imodium prn diarrhea cramping improved Will return to his previous outpatient PCP and cancer physician KEMAR, dehydration Encourage by mouth fluids, drinking adequate amts of fluids Urinary retention, Ricardo DC'd patient is voiding without difficulty will continue flomax on dc -appreciate nephrology input Labs have been monitored, trending to normal ranges gradual Afib RVR, new onset. Denies any prior history -Appreciate cardiology input, amiodarone decreased to 200 mg daily -2D echo 50-55% diastolic dysfunction. Currently sinus rhythm, monitored on telemetry, no issues with dysrhythmias Type 2 diabetes, blood glucose with sliding scale and Accu-Cheks Continue medium dose insulin sliding scale, continue with Accu-Cheks before meals and at bedtime -Continue with Levemir 18 units subcutaneous daily Thrombocytopenia, received chemotherapy 2 weeks ago Monitor labs, no evidence of bleeding noted SCDs for DVT prophylaxis D/W patient and D/W Dr. Cuevas seen on her behalf DC today, medicallly stable ([place] M. GUS[employer] RIPPER) Assessment/Plan Patient seen and examined agree with above assessment and plan cleared by cardiology for discharge d/c Octreotide per hematology ( discussed with Yamileth Garcia) ok to d/c home plan of care discussed with patient/ d/w Pamela (Lucita Cuevas MD) Problem Qualifiers (1) Fever: Qualified Code: R50.9 - Fever, unspecified fever cause (2) Diarrhea: Qualified Code: R19.7 - Diarrhea, unspecified type (3) Colon cancer: Qualified Code: C18.9 - Malignant neoplasm of colon, unspecified part of colon Pamela Calero Nov 15, 2016 15:06 Lucita Cuevas MD Nov 15, 2016 15:27
== END 2016-11-15 15:48 | disposition home or self-care (01) | DRG 683 ==
LOC: NEPE 21:57 → NEDA 11-10 02:32 → NEPFCDU 11-10 04:30 → HOCB 11-10 17:41
PROVIDERS: ADMIT Specialist; ATTEND Specialist
DX: N17.0 Acute kidney failure with tubular necrosis (principal); C18.9 Malignant neoplasm of colon, unspecified; E87.2 Acidosis; C78.00 Secondary malignant neoplasm of unspecified lung; I95.9 Hypotension, unspecified; D69.6 Thrombocytopenia, unspecified; E11.65 Type 2 diabetes mellitus with hyperglycemia; E83.42 Hypomagnesemia; I48.91 Unspecified atrial fibrillation; E87.1 Hypo-osmolality and hyponatremia; N39.0 Urinary tract infection, site not specified; E86.0 Dehydration; D64.9 Anemia, unspecified; E78.5 Hyperlipidemia, unspecified; E87.6 Hypokalemia; I10 Essential (primary) hypertension; J44.9 Chronic obstructive pulmonary disease, unspecified; Z79.4 Long term (current) use of insulin; Z79.84 Long term (current) use of oral hypoglycemic drugs; Z87.891 Personal history of nicotine dependence; R19.7 Diarrhea, unspecified; T45.1X5A Adverse effect of antineoplastic and immunosuppressive drugs, initial encounter; R31.9 Hematuria, unspecified; R33.9 Retention of urine, unspecified
CPT/HCPCS: 71010; 76775; 80048; 80053; 80069; 81001; 82272; 82378; 82570; 82948; 83690; 83735; 84100; 84155; 84300; 85025; 85027; 87040; 87493; 87804; 93005; 93306; J0692; J1644; J1815; J2270; J2354; J3475; J7030; J7040